=== PATIENT | female | born 1940 | race Caucasian/White ===

== ENCOUNTER 2019-03-05 11:27 | Inpatient (IN) | payer MEDICARE ==
[2019-03-05] MEDS ORDERED: methylPREDNISolone SOD SUCCI 125 MG/2 ML VIAL IV STA (12:44)
[2019-03-05] MEDS ORDERED: IPRATROPIUM-ALBUTEROL 3 ML NEB INHALATION STA (12:44)
--- NOTE | 2019-03-05 12:48 | ED ---
General Adult HPI - General Chief complaint: Shortness of Breath Stated complaint: SOB/COPD Time Seen by Provider: 03/05/19 12:05 Source: patient, RN notes reviewed Mode of arrival: ambulatory Limitations: no limitations - History of Present Illness Initial comments: Patient is a pleasant 78-year-old female presenting to the emergency department with shortness of breath. Onset of symptoms was around a week ago. She did see her doctor and started on steroids without much improvement of symptoms. Patient is having breathing spasms almost daily. Patient states her breathing treatments are not helping her much. Occasional cough. No fevers. No chest pain. Patient is feeling somewhat fatigued. - Related Data Home Medications Medication Instructions Recorded Confirmed ALPRAZolam [Xanax] 0.125 - 0.25 mg PO BID PRN 03/05/19 03/05/19 Aspirin 81 mg PO HS 03/05/19 03/05/19 Atorvastatin Calcium [Lipitor] 10 mg PO Q48H 03/05/19 03/05/19 Budesonide [Pulmicort] 0.5 mg INHALATION RT-BID 03/05/19 03/05/19 Ipratropium-Albuterol Nebulize 3 ml INHALATION RT-QID 03/05/19 03/05/19 [Duoneb 0.5 mg-3 mg/3 ml Soln] amLODIPine [Norvasc] 2.5 mg PO HS 03/05/19 03/05/19 Allergies Allergy/AdvReac Type Severity Reaction Status Date / Time No Known Allergies Allergy Verified 03/05/19 12:51 Review of Systems ROS Statement: Those systems with pertinent positive or pertinent negative responses have been documented in the HPI. ROS Other: All systems not noted in ROS Statement are negative. Constitutional: Denies: fever Eyes: Denies: eye pain ENT: Denies: ear pain Respiratory: Reports: cough, dyspnea Cardiovascular: Denies: chest pain Endocrine: Reports: fatigue Gastrointestinal: Denies: abdominal pain Genitourinary: Denies: dysuria Musculoskeletal: Denies: back pain Skin: Denies: rash Neurological: Denies: weakness Past Medical History Past Medical History: Asthma, COPD, Myocardial Infarction ([place]) History of Any Multi-Drug Resistant Organisms: None Reported Past Surgical History: Heart Catheterization With Stent, Tonsillectomy Past Psychological History: No Psychological Hx Reported Smoking Status: Current every day smoker Past Alcohol Use History: None Reported Past Drug Use History: None Reported General Exam Limitations: no limitations General appearance: alert, in no apparent distress Head exam: Present: normocephalic Eye exam: Present: normal appearance, PERRL ENT exam: Present: normal oropharynx Neck exam: Present: normal inspection Respiratory exam: Present: wheezes, decreased breath sounds Cardiovascular Exam: Present: regular rate, normal rhythm GI/Abdominal exam: Present: soft. Absent: tenderness Extremities exam: Present: normal inspection. Absent: pedal edema, calf tenderness Neurological exam: Present: alert Psychiatric exam: Present: normal affect, normal mood Skin exam: Present: normal color Course Vital Signs 03/05/19 03/05/19 03/05/19 11:36 11:39 13:15 Temperature 98.2 F Pulse Rate 57 L 106 H Respiratory 18 Rate Blood Pressure 131/81 O2 Sat by Pulse 87 L 95 Oximetry 03/05/19 13:22 Temperature Pulse Rate 102 H Respiratory Rate Blood Pressure O2 Sat by Pulse Oximetry EKG Findings - EKG Comments: EKG Findings:: Sinus tachycardia 109. TN 122. QRS 82. QT 336. QTc 452. Left axis. Left anterior fascicular block. Septal Q waves. No acute ST change. Medical Decision Making - Medical Decision Making Patient reevaluated and unchanged. Patient and family updated on results and plan. Case was discussed in detail with Dr. Chairez, who will admit For Dr. Hernandez. Patient is scheduled to see Dr. Mercado - Lab Data Result diagrams: 03/05/19 12:22 03/05/19 12:22 Lab Results 03/05/19 03/05/19 03/05/19 Range/Units 12:22 12:22 12:22 WBC 8.7 (3.8-10.6) k/uL RBC 5.34 (3.80-5.40) m/uL Hgb 17.1 H (11.4-16.0) gm/dL Hct 53.0 H (34.0-46.0) % MCV 99.2 (80.0-100.0) fL MCH 31.9 (25.0-35.0) pg MCHC 32.2 (31.0-37.0) g/dL RDW 12.3 (11.5-15.5) % Plt Count 239 (150-450) k/uL Neutrophils % 90 % Lymphocytes % 6 % Monocytes % 4 % Eosinophils % 0 % Basophils % 0 % Neutrophils # 7.8 H (1.3-7.7) k/uL Lymphocytes # 0.5 L (1.0-4.8) k/uL Monocytes # 0.3 (0-1.0) k/uL Eosinophils # 0.0 (0-0.7) k/uL Basophils # 0.0 (0-0.2) k/uL PT (9.0-12.0) sec INR (<1.2) APTT (22.0-30.0) sec Sodium 140 (137-145) mmol/L Potassium 4.5 (3.5-5.1) mmol/L Chloride 102 (98-107) mmol/L Carbon Dioxide 32 H (22-30) mmol/L Anion Gap 6 mmol/L BUN 16 (7-17) mg/dL Creatinine 0.51 L (0.52-1.04) mg/dL Est GFR (CKD-EPI)AfAm >90 (>60 ml/min/1.73 sqM) Est GFR (CKD-EPI)NonAf >90 (>60 ml/min/1.73 sqM) Glucose 115 H (74-99) mg/dL Calcium 10.0 (8.4-10.2) mg/dL Total Bilirubin 0.8 (0.2-1.3) mg/dL AST 57 H (14-36) U/L ALT 95 H (4-34) U/L Alkaline Phosphatase 80 (38-126) U/L NT-Pro-B Natriuret Pep 2000 pg/mL Total Protein 7.0 (6.3-8.2) g/dL Albumin 4.2 (3.5-5.0) g/dL Influenza Type A RNA (Not Detectd) Influenza Type B (PCR) (Not Detectd) 03/05/19 03/05/19 Range/Units 12:22 14:00 WBC (3.8-10.6) k/uL RBC (3.80-5.40) m/uL Hgb (11.4-16.0) gm/dL Hct (34.0-46.0) % MCV (80.0-100.0) fL MCH (25.0-35.0) pg MCHC (31.0-37.0) g/dL RDW (11.5-15.5) % Plt Count (150-450) k/uL Neutrophils % % Lymphocytes % % Monocytes % % Eosinophils % % Basophils % % Neutrophils # (1.3-7.7) k/uL Lymphocytes # (1.0-4.8) k/uL Monocytes # (0-1.0) k/uL Eosinophils # (0-0.7) k/uL Basophils # (0-0.2) k/uL PT 9.9 (9.0-12.0) sec INR 0.9 (<1.2) APTT 23.9 (22.0-30.0) sec Sodium (137-145) mmol/L Potassium (3.5-5.1) mmol/L Chloride (98-107) mmol/L Carbon Dioxide (22-30) mmol/L Anion Gap mmol/L BUN (7-17) mg/dL Creatinine (0.52-1.04) mg/dL Est GFR (CKD-EPI)AfAm (>60 ml/min/1.73 sqM) Est GFR (CKD-EPI)NonAf (>60 ml/min/1.73 sqM) Glucose (74-99) mg/dL Calcium (8.4-10.2) mg/dL Total Bilirubin (0.2-1.3) mg/dL AST (14-36) U/L ALT (4-34) U/L Alkaline Phosphatase (38-126) U/L NT-Pro-B Natriuret Pep pg/mL Total Protein (6.3-8.2) g/dL Albumin (3.5-5.0) g/dL Influenza Type A RNA Not Detected (Not Detectd) Influenza Type B (PCR) Not Detected (Not Detectd) - Radiology Data Radiology results: image reviewed (Chest x-ray shows nonspecific findings, possible bronchitis) Disposition Clinical Impression: Acute exacerbation of chronic obstructive pulmonary disease Disposition: ADMITTED IP TO THIS HOSP Is patient prescribed a controlled substance at d/c from ED?: No Referrals: Zion Hernandez MD [Primary Care Provider] - 1-2 days Decision Time: 15:44
[2019-03-05 13:12] LABS: Basophils % (A) 0 %; Eosinophils % (A) 0 %; HGB 17.1 gm/dL (11.4-16.0); Lymphocytes # (A) 0.5 k/uL (1.0-4.8); Lymphocytes % (A) 6 %; MCH 31.9 pg (25.0-35.0); MCHC 32.2 g/dL (31.0-37.0); MCV 99.2 fL (80.0-100.0); Mean Platelet Volume 7.4; Monocytes # (A) 0.3 k/uL (0-1.0); Monocytes % (A) 4 %; Neutrophils # (A) 7.8 k/uL (1.3-7.7); Neutrophils % (A) 90 %; Platelet Count 239 k/uL (150-450); RBC 5.34 m/uL (3.80-5.40); RDW 12.3 % (11.5-15.5); WBC 8.7 k/uL (3.8-10.6)
[2019-03-05 13:22] LABS: ALT 95 U/L (4-34); AST 57 U/L (14-36); African American GFR (CKD) >90 (>60 ml/min/1.73 sqM); Albumin 4.2 g/dL (3.5-5.0); Alkaline Phosphatase 80 U/L (38-126); Anion Gap 6 mmol/L; Blood Urea Nitrogen 16 mg/dL (7-17); Carbon Dioxide 32 mmol/L (22-30); Chloride 102 mmol/L (98-107); Glucose 115 mg/dL (74-99); Non-African American GFR(CKD) >90 (>60 ml/min/1.73 sqM); Potassium 4.5 mmol/L (3.5-5.1); Sodium 140 mmol/L (137-145); Total Bilirubin 0.8 mg/dL (0.2-1.3)
[2019-03-05 13:25] LABS: INR 0.9 (<1.2); Partial Thromboplastin Time 23.9 sec (22.0-30.0); Prothrombin Time 9.9 sec (9.0-12.0)
--- NOTE | 2019-03-05 13:33 | XR ---
EXAMINATION TYPE: XR chest 2V DATE OF EXAM: 03/05/2019 COMPARISON: NONE TECHNIQUE: PA and lateral views submitted. HISTORY: Difficulty breathing FINDINGS: The lungs are clear and there is no pneumothorax, pleural effusion, or focal pneumonia. Hyperinflat ion lungs. There is cardiomegaly and hypertrophic change of the spine. No overt failure. Diffuse oste openia. Interstitial prominence noted. IMPRESSION: 1. No acute process. COPD. Correlate for interstitial pneumonitis or bronchitis. Venous congestion fe lt less likely.
[2019-03-05] MEDS: IPRATROPIUM-ALBUTEROL 3 ML NEB INHALATION SCH ×3 (16:40→20:57)
[2019-03-05] MEDS: AZITHROMYCIN 500 MG TAB PO SCH (17:59)
[2019-03-05] MEDS: methylPREDNISolone SOD SUCCI 125 MG/2 ML VIAL IV SCH ×2 (17:59→23:43)
[2019-03-05] MEDS: ALPRAZolam 0.25 MG TAB PO PRN (19:53)
[2019-03-05] MEDS: BUDESONIDE 1 MG/2 ML NEBU INHALATION SCH (20:57)
[2019-03-05] MEDS: ASPIRIN 81 MG PO SCH (22:00)
[2019-03-05] MEDS: ATORVASTATIN 10 MG TAB PO SCH (22:00)
[2019-03-05] MEDS: amLODIPine 2.5 MG TAB PO SCH (22:00)
[2019-03-05] MEDS: ENOXAPARIN 40 MG/0.4 ML SYRINGE SQ SCH (22:00)
[2019-03-06] MEDS: IPRATROPIUM-ALBUTEROL 3 ML NEB INHALATION PRN (02:06)
[2019-03-06] MEDS: methylPREDNISolone SOD SUCCI 125 MG/2 ML VIAL IV SCH ×3 (06:11→17:19)
[2019-03-06] MEDS: AZITHROMYCIN 500 MG TAB PO SCH (08:18)
[2019-03-06] MEDS: PANTOPRAZOLE 40 MG TABLET PO SCH (08:18)
[2019-03-06] MEDS: ENOXAPARIN 40 MG/0.4 ML SYRINGE SQ SCH (08:18)
[2019-03-06] MEDS: BUDESONIDE 1 MG/2 ML NEBU INHALATION SCH ×2 (08:44→21:16)
[2019-03-06] MEDS: IPRATROPIUM-ALBUTEROL 3 ML NEB INHALATION SCH ×3 (11:35→21:16)
[2019-03-06 11:37] LABS: Glucose,Whole Blood 162 mg/dL (75-99)
[2019-03-06] MEDS: INSULIN ASPART (NovoLOG) 100 UNIT/ML VIAL SQ SCH ×3 (11:53→21:53)
--- NOTE | 2019-03-06 15:15 | PN ---
PROGRESS NOTE PULMONARY/CRITICAL CARE CONSULTATION: DATE OF SERVICE: 03/06/2019 REASON FOR CONSULTATION: Shortness of breath. This is a pleasant 78-year-old female who sees Dr. Hernandez. In the past, she apparently had seen Dr. Hadley for her lungs. She is not sure exactly what the diagnosis was and she apparently was not very pleased with Dr. Hadley's assessment. Nonetheless, she comes into the ER on March 05 complaining of profound and worsening shortness of breath. Symptoms have been present for about a week prior to admission getting progressively worse. She did see her doctor and was given steroids and apparently some antibiotics but unfortunately did not improve. She states that she is profoundly short of breath. She has severe conversational dyspnea. She has chest tightness, wheezing and cough. She is producing a small amount of phlegm. The patient apparently has quite severe COPD but again we have never seen her in our office or seen here in the hospital. The patient is 78 years of age. She continues to smoke cigarettes. She has been smoking since the age of 18. Her daughter is here at the bedside. She denies any chest pain or pressure. She denies any nausea, vomiting, diarrhea. She denies any genitourinary complaints. HOME MEDICATIONS: Reviewed. She is on Xanax, aspirin, Lipitor, Pulmicort, updrafts with DuoNeb, amlodipine, and amlodipine. ALLERGIES: Denied. MEDICAL HISTORY: COPD, myocardial infarction, anxiety and hyperlipidemia as well as hypertension. SURGICAL HISTORY: Includes heart catheterization with stent, and tonsillectomy. SOCIAL HISTORY: Ongoing tobacco use. She states she has smoked about 8-10 cigarettes a day which is quite a significant decrease. She denies any alcohol or illicit drug use. FAMILY HISTORY: Noncontributory. Apparently, her parents were healthy. REVIEW OF SYSTEMS: CONSTITUTIONAL: Negative. NEUROLOGIC: Negative. HEENT: Negative. CARDIOVASCULAR: Negative. PULMONARY: Shortness of breath, chest tightness, wheezing, cough, chest congestion and some phlegm production. GI: Negative. : Negative. RHEUMATOLOGIC: Negative. IMMUNOLOGIC: Negative. ENDOCRINOLOGIC: Negative. DERMATOLOGIC: Negative. PHYSICAL EXAMINATION: Current vital signs are reviewed. They include a temperature of 97, heart rate 98, respiratory rate 18, blood pressure 112/67, mean 82, 3 L saturation 94%. Appears in no acute distress. HEENT examination is grossly unremarkable. Nasal O2 in place. NECK: Supple full range of motion. No adenopathy or thyromegaly. Neck veins are flat. CARDIOVASCULAR: Examination reveals mild tachycardia. Heart rate about 100. She is in sinus tach. S1, S2 normal. Heart sounds are distant. No distinct murmur noted. LUNGS: Reveal severely diminished breath sounds throughout. There is prolongation on forced maneuver. She wheezes on forced maneuver. No rhonchi or crackles. ABDOMEN: Soft. Bowel sounds are heard. EXTREMITIES: Reveal no evidence of any cyanosis, clubbing, or edema. SKIN: Reveals chronic venous stasis changes particularly in the lower legs. NEUROLOGIC: Examination is brief but nonfocal. LAB DATA: Reviewed. White count 8.7, hemoglobin 17.1, hematocrit 53.0, platelet count 239,000. PT/INR and PTT all normal. Sodium and potassium normal. Chloride 102, CO2 32, anion gap is 6. BUN and creatinine were 16 and 0.51. The rest of the labs look okay. AST and ALT are modestly elevated. N terminal proBNP is 2000. Influenza studies are negative. A chest x-ray is consistent with underlying COPD. No acute abnormality is noted. Medications are reviewed. Adjustments are made accordingly. ASSESSMENT: 1. Chronic obstructive pulmonary disease exacerbation complicated by mild purulent tracheobronchitis. 2. Ongoing tobacco use with nicotine addiction. 3. Suspect stage III or stage IV emphysema. 4. History of anxiety. 5. History of hyperlipidemia. 6. History of hypertension. 7. Prior history of myocardial infarction. PLAN: The patient does have an appointment to see my partner on March 25 in the office. At that point, she likely will have a 6 minute walk distance and complete pulmonary function test. I suspect the patient has either stage III or stage IV COPD based on her numbers when obtained. The patient is quite symptomatic. She continues to smoke. Was counseled about the importance of smoking cessation. Medications are adjusted accordingly. No additional recommendations are made. MMODL / IJN: [id number] /
--- NOTE | 2019-03-06 15:25 | P.HPIM ---
History of Present Illness H&P Date: 03/06/19 Chief Complaint: Difficulty breathing This is a 78-year-old female patient of Dr. Hernandez with past medical history of hypertension, coronary artery disease with previous NE and stent, COPD, hyperlipidemia, generalized anxiety disorder, active tobacco use and dependence. Patient gives history that she was in the office due to cough and congestion all lung with some shortness of breath and had a steroid shot given as well as given prescription for prednisone which she has been on since February 20. She denies prescription for antibiotics. She has been using her nebulizer every 6 hours at home. She continued to get worse with increasing shortness of breath and cough and shallow respirations. She states during the night she was having shallow respirations and left shoulder blade pain. Her daughter was able to sit up or appointment with Dr. López for March 25 but patient states she had another episode on Friday morning and had significant dyspnea during the night had to sit up was unable to talk. She denies having worsening with ambulation. Patient came into [facility] emergency center found to be afebrile, heart rate 57, blood pressure 131/81, pulse ox 87% on room air. Patient does have home O2 at 3 L nasal cannula that s he uses as needed. WBC was 8.7, hemoglobin 17.1, CO2 32, creatinine 0.51, blood sugar 115. ProBNP 2000, AST 57, ALT 95, influenza testing negative. EKG was a sinus tachycardia without acute ST changes. Chest x-ray showed no acute process. COPD. Correlate for interstitial pneumonitis or bronchitis. Venous congestion felt less likely. Review of Systems Constitutional: Reports fatigue, Reports malaise, Denies chills, Denies fever Eyes: denies blurred vision, denies pain Ears, nose, mouth and throat: Denies headache, Denies nasal congestion, Denies nasal discharge, Denies sore throat, Denies vertigo Cardiovascular: Reports chest pain, Reports decreased exercise tolerance, R eports dyspnea on exertion, Denies edema, Denies leg edema, Denies shortness of breath, Denies syncope Respiratory: Reports cough, Reports cough with sputum, Reports dyspnea, Reports home oxygen, Reports respiratory infections, Reports wheezing, Denies excessive sputum, Denies hemoptysis Gastrointestinal: Denies abdominal pain, Denies diarrhea, Denies nausea, Denies vomiting Genitourinary: Denies dysuria, Denies hematuria, Denies urgency, Denies urinary frequency Musculoskeletal: Denies frequent falls, Denies gait dysfunction, Denies muscle weakness, Denies myalgias Integumentary: Denies pruritus, Denies rash, Denies wounds Neurological: Denies change in mentation, Denies change in speech, Denies numbness, Denies weakness Psychiatric: Denies anxiety, Denies depression Endocrine: Denies fatigue, Denies weight change Past Medical History Past Medical History: Asthma, COPD, Myocardial Infarction ([place]) Last Myocardial Infarction Date:: 08/02/2003 History of Any Multi-Drug Resistant Organisms: None Reported Past Surgical History: Heart Catheterization With Stent, Tonsillectomy Date of Last Stent Placement:: 08/02/2003 Past Psychological History: No Psychological Hx Reported Smoking Status: Current every day smoker Past Alcohol Use History: None Reported Additional Past Alcohol Use History / Comment(s): Patient has been a smoker for 61 years. She was at one time up to 1-1-1/2 packs per day currently cut down to 10 cigarettes per day. She also worked in the automotive industry. She has a nebulizer machine and home O2 at 3 L which she uses as needed. Past Drug Use History: None Reported - Past Family History Father Additional Family Medical History / Comment(s): Father at age 34 from heart failure. Mother Additional Family Medical History / Comment(s): Mother at age 68 from lung cancer. Brother(s) Additional Family Medical History / Comment(s): Patient has 3 brothers all , one from a motor vehicle accident at age 28, one had history of CVA and kidney cancer and brain cancer status post surgery. One brother from possible prostate cancer at the age of 82. Sister(s) Additional Family Medical History / Comment(s): Patient has 2 sisters one had breast cancer with metastatic disease and one had bleeding from her lungs. Son(s) History Unknown: Yes Additional Family Medical History / Comment(s): Patient has one son that was involved in a motor cross accident at age 18 with spinal cord injury now 52 years of age with lower extremity paralysis and amputation. Patient has one daughter with autoimmune disease and arthritis. Medications and Allergies Home Medications Medication Instructions Recorded Confirmed Type ALPRAZolam [Xanax] 0.125 - 0.25 mg PO BID PRN 03/05/19 03/05/19 History Aspirin 81 mg PO HS 03/05/19 03/05/19 History Atorvastatin Calcium [Lipitor] 10 mg PO Q48H 03/05/19 03/05/19 History Budesonide [Pulmicort] 0.5 mg INHALATION RT-BID 03/05/19 03/05/19 History Ipratropium-Albuterol Nebulize 3 ml INHALATION RT-QID 03/05/19 03/05/19 History [Duoneb 0.5 mg-3 mg/3 ml Soln] amLODIPine [Norvasc] 2.5 mg PO HS 03/05/19 03/05/19 History Allergies Allergy/AdvReac Type Severity Reaction Status Date / Time No Known Allergies Allergy Verified 03/05/19 12:51 Physical Exam Vitals: Vital Signs Temp Pulse Pulse Resp BP BP Pulse Ox 03/06/19 09:09 104 H 03/06/19 08:46 100 03/06/19 06:08 97.4 F L 99 18 102/64 96 03/06/19 02:18 97 03/06/19 02:06 97 03/05/19 21:23 97.3 F L 103 H 18 111/65 92 L 03/05/19 21:17 106 H 03/05/19 20:59 102 H 97 03/05/19 18:21 17 03/05/19 17:07 98.0 F 104 H 20 130/79 91 L 03/05/19 16:49 105 H 18 03/05/19 16:41 105 H 18 03/05/19 16:00 105 H 26 H 134/92 92 L 03/05/19 15:00 107 H 26 H 92 L 03/05/19 14:00 104 H 25 H 129/80 92 L 03/05/19 13:22 102 H 03/05/19 13:15 106 H 03/05/19 13:00 108 H 26 H 122/81 93 L 03/05/19 11:39 95 03/05/19 11:36 98.2 F 57 L 18 131/81 87 L Intake and Output 03/05/19 03/06/19 03/06/19 22:59 06:59 14:59 Intake Total 300 Balance 300 Intake: Oral 300 Other: Voiding Method Toilet Toilet # Voids 2 1 Weight 50.802 kg Gen: This is a thin 78-year-old female. Patient appears to be in no acute distress. Patient becomes dyspneic speaking in full sentences. HEENT: Head is atraumatic, normocephalic. Pupils equal, round. Sclerae is anicteric. Oral mucous membranes slightly dry. No thrush noted. NECK: Supple. No JVD. No lymphadenopathy. No thyromegaly. LUNGS: Lung sounds are diminished with expiratory wheeze. No intercostal retractions. HEART: Distant heart sounds. Regular rate and rhythm. No murmur. ABDOMEN: Soft. Bowel sounds are present. No masses. Mild generalized tenderness. EXTREMITIES: No pedal edema. No calf tenderness. Dorsalis pedis +2 bilaterally. NEUROLOGICAL: Patient is awake, alert and oriented x3. Cranial nerves 2 through 12 are grossly intact. Results CBC & Chem 7: 03/05/19 12:22 03/05/19 12:22 Labs: Abnormal Lab Results - Last 24 Hours (Table) 03/05/19 03/05/19 Range/Units 12:22 12:22 Hgb 17.1 H (11.4-16.0) gm/dL Hct 53.0 H (34.0-46.0) % Neutrophils # 7.8 H (1.3-7.7) k/uL Lymphocytes # 0.5 L (1.0-4.8) k/uL Carbon Dioxide 32 H (22-30) mmol/L Creatinine 0.51 L (0.52-1.04) mg/dL Glucose 115 H (74-99) mg/dL AST 57 H (14-36) U/L ALT 95 H (4-34) U/L Thrombosis Risk Factor Assmnt - DVT/VTE Prophylaxis DVT/VTE Prophylaxis: Pharmacologic Prophylaxis ordered Assessment and Plan Plan: 1. Acute COPD exacerbation. Continue DuoNeb treatments 4 times daily and every 4 hours as needed, Perforomist twice daily, Pulmicort 1 mg twice daily, Solu- Medrol 60 mg IV every 6 hours, Zithromax 500 mg daily oral consult with Dr. De La O. 2. Hypertension. Continue Norvasc 2.5 mg daily. 3. History of coronary artery disease status post NE and stent, continue aspirin 81 mg. 4. Generalized anxiety disorder. Continue Xanax as needed. 5. GI prophylaxis. Protonix. 6. DVT prophylaxis. Lovenox. 7. Tobacco use and dependence. Nicotine patch. Patient will be admitted to the hospital for a minimum of 2 night stay. Discharge plan: home Impression and plan of care have been directed as dictated by the signing physician. Mahogany Smith nurse practitioner acting as scribe for signing physi alvaro.
[2019-03-06 16:33] LABS: Glucose,Whole Blood 147 mg/dL (75-99)
[2019-03-06] MEDS: NICOTINE 7MG/24HR PATCH TRANSDERM SCH (18:07)
[2019-03-06] MEDS: FORMOTEROL FUMARATE 20 MCG/2 ML NEBU INHALATION SCH (21:16)
[2019-03-06 21:40] LABS: Glucose,Whole Blood 145 mg/dL (75-99)
[2019-03-06] MEDS: ASPIRIN 81 MG PO SCH (21:51)
[2019-03-06] MEDS: amLODIPine 2.5 MG TAB PO SCH (21:51)
[2019-03-06] MEDS: ALPRAZolam 0.25 MG TAB PO PRN (21:54)
[2019-03-07] MEDS: methylPREDNISolone SOD SUCCI 125 MG/2 ML VIAL IV SCH ×2 (00:30→06:22)
[2019-03-07] MEDS: IPRATROPIUM-ALBUTEROL 3 ML NEB INHALATION PRN ×2 (00:59→05:09)
[2019-03-07 06:53] LABS: Glucose,Whole Blood 128 mg/dL (75-99)
[2019-03-07] MEDS: INSULIN ASPART (NovoLOG) 100 UNIT/ML VIAL SQ SCH ×4 (07:06→21:41)
[2019-03-07] MEDS: AZITHROMYCIN 500 MG TAB PO SCH (08:49)
[2019-03-07] MEDS: PANTOPRAZOLE 40 MG TABLET PO SCH (08:49)
[2019-03-07] MEDS: ENOXAPARIN 40 MG/0.4 ML SYRINGE SQ SCH (08:50)
[2019-03-07] MEDS: NICOTINE 7MG/24HR PATCH TRANSDERM SCH (08:50)
[2019-03-07] MEDS: IPRATROPIUM-ALBUTEROL 3 ML NEB INHALATION SCH ×4 (09:19→18:55)
[2019-03-07] MEDS: BUDESONIDE 1 MG/2 ML NEBU INHALATION SCH ×2 (09:19→18:55)
[2019-03-07] MEDS: FORMOTEROL FUMARATE 20 MCG/2 ML NEBU INHALATION SCH ×2 (09:19→18:55)
[2019-03-07 11:23] LABS: Glucose,Whole Blood 137 mg/dL (75-99)
--- NOTE | 2019-03-07 13:20 | PN ---
PROGRESS NOTE This a 78-year-old heavy smoker. She was smoking up until the time of her admission to the hospital. She was admitted with a diagnosis of COPD exacerbation complicated by purulent tracheobronchitis. I suspect she has stage III or stage IV COPD. She also suffers from anxiety, hyperlipidemia, hypertension, and prior history of myocardial infarction. She is scheduled to see Dr. Mercado sometime later in March. She is feeling a bit better today. She is a pretty high strung patient. Very anxious. Her complaints include primarily shortness of breath, cough and occasional chest congestion. PHYSICAL EXAMINATION: Current vital signs are reviewed. Temperature is 97.8, heart rate 105, respiratory rate 19, blood pressure 102/67, mean 70, 3 L saturation 95%. She appears in no acute distress. She seems a bit anxious. HEENT examination is grossly unremarkable. Nasal O2 in place. NECK: Supple. Full range of motion. No adenopathy or thyromegaly. Neck veins are flat. CARDIOVASCULAR examination reveals tachycardia. Heart rate 100-105. S1, S2 normal. LUNGS: Reveal expiratory wheezes and rhonchi. Breath sounds are severely diminished throughout. There is prolongation on forced maneuver. ABDOMEN: Soft. Bowel sounds are heard. EXTREMITIES are intact. Chronic venous stasis changes noted in the lower legs. Minimal edema. SKIN: Without rash. NEUROLOGIC examination is nonfocal. LABS: Reviewed. Nothing new from today as yet. Influenza studies were negative. Microbiologic studies are negative. Chest x-ray failed to reveal any acute infiltrate. It was only positive for COPD. Medications were adjusted yesterday. She is on appropriate medications including Pulmicort and formoterol twice a day, Zithromax orally, DuoNeb q.i.d. and p.r.n., and Solu-Medrol 40 mg q.8h. ASSESSMENT: 1. Chronic obstructive pulmonary disease exacerbation complicated by purulent tracheobronchitis, slightly improved. 2. Ongoing tobacco use, with nicotine addiction. 3. Suspect stage III or stage IV emphysema. 4. History of anxiety. 5. History of hyperlipidemia. 6. History of hypertension. 7. Prior history of myocardial infarction. PLAN: The patient is on appropriate medications. We increased her Xanax to 0.25 mg twice a day scheduled. This should help some of her anxiety. No additional recommendations are made. She does have an appointment to see my partner in the office sometime in March. She needs to keep that appointment. She will need at the very least a 6 minute walk distance and complete pulmonary function test. MMXANDER / MARIBELLN: [id number] /
--- NOTE | 2019-03-07 15:34 | P.PN ---
Subjective Progress Note Date: 03/07/19 This is a 78-year-old female patient of Dr. Hernandez with past medical history of hypertension, coronary artery disease with previous MO and stent, COPD, hyperlipidemia, generalized anxiety disorder, active tobacco use and dependence. Patient gives history that she was in the office due to cough and congestion all lung with some shortness of breath and had a steroid shot given as well as given prescription for prednisone which she has been on since February 20. She denies prescription for antibiotics. She has been using her nebulizer every 6 hours at home. She continued to get worse with increasing shortness of breath and cough and shallow respirations. She states during the night she was having shallow respirations and left shoulder blade pain. Her daughter was able to sit up or appointment with Dr. López for March 25 but patient states she had another episode on Friday morning and had significant dyspnea during the night had to sit up was unable to talk. She denies having worsening with ambulation. Patient came into [facility] emergency center found to be afebrile, heart rate 57, blood pressure 131/81, pulse ox 87% on room air. Patient does have home O2 at 3 L nasal cannula that she uses as needed. WBC was 8.7, hemoglobin 17.1, CO2 32, creatinine 0.51, blood sugar 115. ProBNP 2000, AST 57, ALT 95, influenza testing negative. EKG was a sinus tachycardia without acute ST changes. Chest x-ray showed no acute process. COPD. Correlate for interstitial pneumonitis or bronchitis. Venous congestion felt less likely. 03/07: Patient states that her breathing is better. Patient is able to speak in full sentences. She is known to have some dyspnea with speaking. She is moving air better today. Patient has been afebrile, heart rate 98, blood pressure 120/56, pulse ox 97% on 3 L nasal cannula. We'll plan to decrease Solu-Medrol to 40 mg IV every 8 hours. Anticipate possible discharge by tomorrow. Patient is seen and followed by Dr. Muñiz and there is plan for her to follow-up with Dr. López at the scheduled appointment. Review of Systems Constitutional: Reports fatigue, Reports malaise, Denies chills, Denies fever Eyes: denies blurred vision, denies pain Ears, nose, mouth and throat: Denies headache, Denies nasal congestion, Denies nasal discharge, Denies sore throat, Denies vertigo Cardiovascular: Reports chest pain, Reports decreased exercise tolerance, Reports dyspnea on exertion, Denies edema, Denies leg edema, Denies shortness of breath, Denies syncope Respiratory: Reports cough, Reports cough with sputum, Reports dyspnea, Reports home oxygen, Reports respiratory infections, Reports wheezing, Denies excessive sputum, Denies hemoptysis Gastrointestinal: Denies abdominal pain, Denies diarrhea, Denies nausea, Denies vomiting Genitourinary: Denies dysuria, Denies hematuria, Denies urgency, Denies urinary frequency Musculoskeletal: Denies frequent falls, Denies gait dysfunction, Denies muscle weakness, Denies myalgias Integumentary: Denies pruritus, Denies rash, Denies wounds Neurological: Denies change in mentation, Denies change in speech, Denies numbness, Denies weakness Psychiatric: Denies anxiety, Denies depression Endocrine: Denies fatigue, Denies weight change Objective - Vital Signs Vital signs: Vital Signs Temp 97.8 F 03/07/19 05:25 Pulse 105 H 03/07/19 05:25 Resp 19 03/07/19 05:25 BP 102/67 03/07/19 05:25 Pulse Ox 95 03/07/19 05:25 Intake & Output 03/06/19 03/07/19 03/07/19 18:59 06:59 18:59 Intake Total 600 400 Balance 600 400 Intake: Oral 600 400 Other: Voiding Method Toilet # Voids 2 1 - Exam Gen: This is a thin 78-year-old female. Patient appears to be in no acute distress. Patient becomes dyspneic speaking in full sentences. HEENT: Head is atraumatic, normocephalic. Pupils equal, round. Sclerae is anicteric. Oral mucous membranes slightly dry. No thrush noted. NECK: Supple. No JVD. No lymphadenopathy. No thyromegaly. LUNGS: Lung sounds are diminished with scattered expiratory wheeze. No intercostal retractions. HEART: Distant heart sounds. Regular rate and rhythm. No murmur. ABDOMEN: Soft. Bowel sounds are present. No masses. Mild generalized tenderness. EXTREMITIES: No pedal edema. No calf tenderness. Dorsalis pedis +2 bilaterally. NEUROLOGICAL: Patient is awake, alert and oriented x3. Cranial nerves 2 through 12 are grossly intact. - Labs CBC & Chem 7: 03/05/19 12:22 03/05/19 12:22 Labs: Abnormal Lab Results - Last 24 Hours (Table) 03/06/19 03/06/19 03/06/19 Range/Units 11:34 16:29 21:30 POC Glucose (mg/dL) 162 H 147 H 145 H (75-99) mg/dL 03/07/19 Range/Units 06:49 POC Glucose (mg/dL) 128 H (75-99) mg/dL Assessment and Plan Plan: 1. Acute COPD exacerbation. Continue DuoNeb treatments 4 times daily and every 4 hours as needed, Perforomist twice daily, Pulmicort 1 mg twice daily, Solu- Medrol decreased to 40 mg every 8 hours, Zithromax 500 mg daily oral, consult with Dr. Jaylyn craven. 2. Hypertension. Continue Norvasc 2.5 mg daily. 3. History of coronary artery disease status post MO and stent, continue aspirin 81 mg. 4. Generalized anxiety disorder. Continue Xanax as needed. 5. GI prophylaxis. Protonix. 6. DVT prophylaxis. Lovenox. 7. Tobacco use and dependence. Nicotine patch. Discharge plan: home on Friday Impression and plan of care have been directed as dictated by the signing physician. Mahogany Smith nurse practitioner acting as scribe for signing physician.
[2019-03-07] MEDS: methylPREDNISolone SOD SUCCI 40 MG/ML 1 ML VIAL IV SCH ×2 (16:30→23:56)
[2019-03-07 16:35] LABS: Glucose,Whole Blood 162 mg/dL (75-99)
[2019-03-07 20:49] LABS: Glucose,Whole Blood 117 mg/dL (75-99)
[2019-03-07] MEDS: ASPIRIN 81 MG PO SCH (21:40)
[2019-03-07] MEDS: ATORVASTATIN 10 MG TAB PO SCH (21:40)
[2019-03-07] MEDS: amLODIPine 2.5 MG TAB PO SCH (21:40)
[2019-03-07] MEDS: ALPRAZolam 0.25 MG TAB PO SCH (21:40)
[2019-03-08] MEDS: IPRATROPIUM-ALBUTEROL 3 ML NEB INHALATION PRN (02:09)
[2019-03-08 07:07] LABS: Glucose,Whole Blood 125 mg/dL (75-99)
[2019-03-08] MEDS: FORMOTEROL FUMARATE 20 MCG/2 ML NEBU INHALATION SCH (07:48)
[2019-03-08] MEDS: IPRATROPIUM-ALBUTEROL 3 ML NEB INHALATION SCH ×3 (07:49→15:47)
[2019-03-08] MEDS: BUDESONIDE 1 MG/2 ML NEBU INHALATION SCH (07:49)
[2019-03-08] MEDS: INSULIN ASPART (NovoLOG) 100 UNIT/ML VIAL SQ SCH ×2 (08:16→12:36)
[2019-03-08] MEDS: ALPRAZolam 0.25 MG TAB PO SCH (10:02)
[2019-03-08] MEDS: AZITHROMYCIN 500 MG TAB PO SCH (10:03)
[2019-03-08] MEDS: ENOXAPARIN 40 MG/0.4 ML SYRINGE SQ SCH (10:03)
[2019-03-08] MEDS: PANTOPRAZOLE 40 MG TABLET PO SCH (10:03)
[2019-03-08] MEDS: methylPREDNISolone SOD SUCCI 40 MG/ML 1 ML VIAL IV SCH ×2 (10:03→15:08)
[2019-03-08] MEDS: NICOTINE 7MG/24HR PATCH TRANSDERM SCH (10:04)
[2019-03-08 11:15] VITALS: BMI 18.6
[2019-03-08] MEDS ORDERED: BISACODYL 5 MG TABLET.DR PO SCH (12:00)
[2019-03-08 12:31] LABS: Glucose,Whole Blood 104 mg/dL (75-99)
[2019-03-08 13:23] VITALS: BP 113/80; RESP 20; TEMP 96.8
--- NOTE | 2019-03-08 15:26 | P.DS ---
Providers Date of admission: 03/07/19 14:34 Expected date of discharge: 03/08/19 Attending physician: Paco Sanchez MD Consults: 03/05/19 15:45 Consult Physician Routine Consulting Provider: Davi Mercado Consult Reason/Comments: dyspnea Do you want consulting provider notified?: Yes Primary care physician: [place] Hospital Course: This is a 78-year-old female patient of Dr. Hernandez with past medical history of hypertension, coronary artery disease with previous MD and stent, COPD, hyperlipidemia, generalized anxiety disorder, active tobacco use and dependence. Patient gives history that she was in the office due to cough and congestion all lung with some shortness of breath and had a steroid shot given as well as given prescription for prednisone which she has been on since February 20. She denies prescription for antibiotics. She has been using her nebulizer every 6 hours at home. She continued to get worse with increasing shortness of breath and cough and shallow respirations. She states during the night she was having shallow respirations and left shoulder blade pain. Her daughter was able to sit up or appointment with Dr. López for March 25 but patient states she had another episode on Friday morning and had significant dyspnea during the night had to sit up was unable to talk. She denies having worsening with ambulation. Patient came into [facility] emergency center found to be afebrile, heart rate 57, blood pressure 131/81, pulse ox 87% on room air. Patient does have home O2 at 3 L nasal cannula that she uses as needed. WBC was 8.7, hemoglobin 17.1, CO2 32, creatinine 0.51, blood sugar 115. ProBNP 2000, AST 57, ALT 95, influenza testing negative. EKG was a sinus tachycardia without acute ST changes. Chest x-ray showed no acute process. COPD. Correlate for interstitial pneumonitis or bronchitis. Venous congestion felt less likely. 03/07: Patient states that her breathing is better. Patient is able to speak in full sentences. She is known to have some dyspnea with speaking. She is moving air better today. Patient has been afebrile, heart rate 98, blood pressure 120/56, pulse ox 97% on 3 L nasal cannula. We'll plan to decrease Solu-Medrol to 40 mg IV every 8 hours. Anticipate possible discharge by tomorrow. Patient is seen and followed by Dr. Muñiz and there is plan for her to follow-up with Dr. López at the scheduled appointment. 03/08: Patient's breathing status is stable today. She states she did not sleep during the night. She is complaining of some epigastric discomfort for which she will be started on Protonix. Patient has been recommended to continue oxygen around the clock until she is rechecked in the office. Patient will be discharged home today in stable condition. Discharge diagnoses: 1. Acute COPD exacerbation. 2. Hypertension. 3. History of coronary artery disease status post MD and stent. 4. Generalized anxiety disorder. 5. Tobacco use and dependence. Nicotine patch. 6. Chronic hypoxic respiratory failure on home O2. Discharge plan: home Impression and plan of care have been directed as dictated by the signing physician. Mahogany Smith nurse practitioner acting as scribe for signing physician. Patient Condition at Discharge: Good Plan - Discharge Summary Discharge Rx Participant: No New Discharge Prescriptions: New Nicotine 7Mg/24Hr Patch [Habitrol] 1 patch TRANSDERM DAILY #30 patch predniSONE 0 mg PO DIRECTED #30 tab Pantoprazole [Protonix] 40 mg PO AC-BRKFST #30 tablet. Azithromycin [Zithromax] 500 mg PO DAILY #5 tab Continue Aspirin 81 mg PO HS amLODIPine [Norvasc] 2.5 mg PO HS Budesonide [Pulmicort] 0.5 mg INHALATION RT-BID ALPRAZolam [Xanax] 0.125 - 0.25 mg PO BID PRN PRN Reason: Anxiety Ipratropium-Albuterol Nebulize [Duoneb 0.5 mg-3 mg/3 ml Soln] 3 ml INHALATION RT-QID Atorvastatin Calcium [Lipitor] 10 mg PO Q48H Discharge Medication List ALPRAZolam [Xanax] 0.125 - 0.25 mg PO BID PRN 03/05/19 [History] Aspirin 81 mg PO HS 03/05/19 [History] Atorvastatin Calcium [Lipitor] 10 mg PO Q48H 03/05/19 [History] Budesonide [Pulmicort] 0.5 mg INHALATION RT-BID 03/05/19 [History] Ipratropium-Albuterol Nebulize [Duoneb 0.5 mg-3 mg/3 ml Soln] 3 ml INHALATION RT-QID 03/05/19 [History] amLODIPine [Norvasc] 2.5 mg PO HS 03/05/19 [History] Azithromycin [Zithromax] 500 mg PO DAILY #5 tab 03/08/19 [Rx] Nicotine 7Mg/24Hr Patch [Habitrol] 1 patch TRANSDERM DAILY #30 patch 03/08/19 [Rx] Pantoprazole [Protonix] 40 mg PO AC-BRKFST #30 tablet. 03/08/19 [Rx] predniSONE 0 mg PO DIRECTED #30 tab 03/08/19 [Rx] Follow up Appointment(s)/Referral(s): Davi Mercado MD [STAFF PHYSICIAN] - 03/25/19 9:15 am () Zion Hernandez MD [Primary Care Provider] - 1 Week (office to call you with appt. time and date.) Patient Instructions/Handouts: COPD (Chronic Obstructive Pulmonary Disease) (DC) Activity/Diet/Wound Care/Special Instructions: Continue HOME O2--use around the clock until rechecked in the office. Discharge Disposition: HOME SELF-CARE
[2019-03-08 16:03] VITALS: PULSE 110
== END 2019-03-08 16:31 | disposition home or self-care (01) | DRG 191 ==
LOC: EC 11:27 → 6NMEDSUR 15:45 → OBSVTOIN 03-07 14:34
PROVIDERS: ADMIT Internal Medicine; ATTEND Internal Medicine
DX: J44.1 Chronic obstructive pulmonary disease with (acute) exacerbation (principal); J96.11 Chronic respiratory failure with hypoxia; F17.210 Nicotine dependence, cigarettes, uncomplicated; E78.5 Hyperlipidemia, unspecified; F41.1 Generalized anxiety disorder; I10 Essential (primary) hypertension; I44.4 Left anterior fascicular block; I25.10 Atherosclerotic heart disease of native coronary artery without angina pectoris; Z79.82 Long term (current) use of aspirin; I25.2 Old myocardial infarction; Z95.5 Presence of coronary angioplasty implant and graft; Z82.49 Family history of ischemic heart disease and other diseases of the circulatory system; Z80.8 Family history of malignant neoplasm of other organs or systems; Z80.3 Family history of malignant neoplasm of breast; Z80.1 Family history of malignant neoplasm of trachea, bronchus and lung; Z80.51 Family history of malignant neoplasm of kidney; Z90.89 Acquired absence of other organs; Z99.81 Dependence on supplemental oxygen
CPT/HCPCS: 36415; 71046; 80053; 83880; 85025; 85610; 85730; 87502; 93005; 94640; 94644; 94760; 96374; 99285

== ENCOUNTER 2019-08-24 04:59 | Inpatient (IN) | payer MEDICARE ==
[2019-08-24] MEDS ORDERED: IPRATROPIUM-ALBUTEROL 3 ML NEB INHALATION STA (05:05)
[2019-08-24 05:17] LABS: Basophils % (A) 0 %; Eosinophils # (A) 0.1 k/uL (0-0.7); Eosinophils % (A) 1 %; HCT 52.1 % (34.0-46.0); HGB 17.3 gm/dL (11.4-16.0); Lymphocytes # (A) 1.2 k/uL (1.0-4.8); Lymphocytes % (A) 11 %; MCH 32.6 pg (25.0-35.0); MCHC 33.2 g/dL (31.0-37.0); MCV 98.3 fL (80.0-100.0); Mean Platelet Volume 7.3; Monocytes # (A) 0.8 k/uL (0-1.0); Monocytes % (A) 8 %; Neutrophils # (A) 8.5 k/uL (1.3-7.7); Neutrophils % (A) 78 %; Platelet Count 240 k/uL (150-450); RDW 12.3 % (11.5-15.5); WBC 10.9 k/uL (3.8-10.6)
[2019-08-24] MEDS ORDERED: MORPHINE SULFATE 4 MG/ML SYRINGE IV STA (05:17)
[2019-08-24 05:18] LABS: VBG PH 7.36 (7.31-7.41)
[2019-08-24 05:35] LABS: INR 0.9 (<1.2); Partial Thromboplastin Time 22.3 sec (22.0-30.0); Prothrombin Time 9.8 sec (9.0-12.0)
--- NOTE | 2019-08-24 05:37 | XR ---
EXAMINATION TYPE: XR chest 1V portable DATE OF EXAM: 08/24/2019 COMPARISON: 03/25/2019 HISTORY: Short of breath TECHNIQUE: FINDINGS: Heart is enlarged. There is some pulmonary interstitial edema. There are no hilar masses. T horacic aorta is atheromatous. There are chest leads. IMPRESSION: Cardiomegaly. There is new pulmonary interstitial edema compared to old exam that could b e acute congestive heart failure. There is underlying COPD.
[2019-08-24 05:52] LABS: ALT 106 U/L (4-34); AST 114 U/L (14-36); African American GFR (CKD) >90 (>60 ml/min/1.73 sqM); Albumin 3.9 g/dL (3.5-5.0); Alkaline Phosphatase 108 U/L (38-126); Anion Gap 9 mmol/L; Blood Urea Nitrogen 30 mg/dL (7-17); Calcium 9.2 mg/dL (8.4-10.2); Carbon Dioxide 33 mmol/L (22-30); Chloride 96 mmol/L (98-107); Glucose 156 mg/dL (74-99); Non-African American GFR(CKD) 88 (>60 ml/min/1.73 sqM); Potassium 4.5 mmol/L (3.5-5.1); Sodium 138 mmol/L (137-145); Total Bilirubin 0.7 mg/dL (0.2-1.3); Total Protein 6.7 g/dL (6.3-8.2)
--- NOTE | 2019-08-24 05:53 | ED ---
SOB HPI - General Source: patient, EMS Mode of arrival: EMS Limitations: no limitations - History of Present Illness MD Complaint: shortness of breath, cough -: days(s) Consistency: constant Improves With: nothing Worsens With: nothing Known History Of: COPD Associated Symptoms: cough Treatments Prior to Arrival: oxygen, bronchodilator <Fabian Kurtz - Last Filed: 08/24/19 06:57> <Rony Bustamante - Last Filed: 08/24/19 08:56> - General Chief Complaint: Shortness of Breath Stated Complaint: Diff Breathing Time Seen by Provider: 08/24/19 05:01 - History of Present Illness Initial Comments: This patient is 79-year-old woman with history of end-stage COPD who presents to be evaluated for worsening from her baseline shortness of breath. The patient states she is also having a little bit of nonproductive cough. No chest pain. (Fabian Kurtz) - Related Data Home Medications Medication Instructions Recorded Confirmed ALPRAZolam [Xanax] 0.25 mg PO BID PRN 03/05/19 08/24/19 Aspirin 81 mg PO HS 03/05/19 08/24/19 Budesonide [Pulmicort] 0.5 mg INHALATION RT-BID 03/05/19 08/24/19 Ipratropium-Albuterol Nebulize 3 ml INHALATION RT-QID 03/05/19 08/24/19 [Duoneb 0.5 mg-3 mg/3 ml Soln] amLODIPine [Norvasc] 2.5 mg PO HS 03/05/19 08/24/19 Azithromycin [Zithromax] 250 mg PO DAILY 08/24/19 08/24/19 Baclofen 10 mg PO TID 08/24/19 08/24/19 Simvastatin [Zocor] 20 mg PO HS 08/24/19 08/24/19 Sucralfate [Carafate] 1 gm PO ACHS 08/24/19 08/24/19 Theophylline 24 Hour [Mookie-24] 300 mg PO DAILY 08/24/19 08/24/19 Triamterene/Hydrochlorothiazid 1 each PO DAILY 08/24/19 08/24/19 [Triamterene-Hctz 37.5-25 mg Tb] buPROPion XL [Wellbutrin Xl] 150 mg PO DAILY 08/24/19 08/24/19 predniSONE 10 mg PO DAILY 08/24/19 08/24/19 Previous Rx's Medication Instructions Recorded Pantoprazole [Protonix] 40 mg PO AC-BRKFST #30 tablet. 03/08/19 Allergies Allergy/AdvReac Type Severity Reaction Status Date / Time No Known Allergies Allergy Verified 08/24/19 08:47 Review of Systems ROS Other: All systems not noted in ROS Statement are negative. Constitutional: Denies: fever, chills Respiratory: Reports: cough, dyspnea, wheezes. Denies: hemoptysis Cardiovascular: Denies: chest pain, palpitations, orthopnea, edema, syncope Gastrointestinal: Denies: abdominal pain, vomiting, diarrhea Genitourinary: Denies: dysuria Musculoskeletal: Denies: back pain Skin: Denies: rash Neurological: Denies: headache <Fabian Kurtz - Last Filed: 08/24/19 06:57> ROS Other: All systems not noted in ROS Statement are negative. <Rony Bustamante - Last Filed: 08/24/19 08:56> ROS Statement: Those systems with pertinent positive or pertinent negative responses have been documented in the HPI. Past Medical History Past Medical History: Asthma, Heart Failure, COPD, Myocardial Infarction (PR) Last Myocardial Infarction Date:: 08/02/2003 History of Any Multi-Drug Resistant Organisms: None Reported Past Surgical History: Heart Catheterization With Stent, Tonsillectomy Date of Last Stent Placement:: 08/02/2003 Past Psychological History: No Psychological Hx Reported Smoking Status: Current every day smoker Past Alcohol Use History: None Reported Past Drug Use History: None Reported - Past Family History Father Additional Family Medical History / Comment(s): Father at age 34 from heart failure. Mother Additional Family Medical History / Comment(s): Mother at age 68 from lung cancer. Brother(s) Additional Family Medical History / Comment(s): Patient has 3 brothers all , one from a motor vehicle accident at age 28, one had history of CVA and kidney cancer and brain cancer status post surgery. One brother from possible prostate cancer at the age of 82. Sister(s) Additional Family Medical History / Comment(s): Patient has 2 sisters one had breast cancer with metastatic disease and one had bleeding from her lungs. Son(s) History Unknown: Yes Additional Family Medical History / Comment(s): Patient has one son that was involved in a motor cross accident at age 18 with spinal cord injury now 52 years of age with lower extremity paralysis and amputation. Patient has one daughter with autoimmune disease and arthritis. <Fabian Kurtz - Last Filed: 08/24/19 06:57> General Exam Limitations: no limitations General appearance: alert, in no apparent distress Head exam: Present: atraumatic, normocephalic Eye exam: Present: normal appearance ENT exam: Present: mucous membranes dry Neck exam: Present: normal inspection Respiratory exam: Present: respiratory distress, wheezes, accessory muscle use, prolonged expiratory. Absent: rales, rhonchi, stridor, decreased breath sounds Cardiovascular Exam: Present: normal rhythm, tachycardia, normal heart sounds. Absent: systolic murmur, diastolic murmur, rubs, gallop GI/Abdominal exam: Present: soft. Absent: distended, tenderness, guarding, rebound, mass Extremities exam: Present: normal inspection, normal capillary refill. Absent: pedal edema Back exam: Present: normal inspection Neurological exam: Present: alert Psychiatric exam: Present: anxious Skin exam: Present: warm, dry, intact <TessieFabian - Last Filed: 08/24/19 06:57> Course <Rony Bustamante - Last Filed: 08/24/19 08:56> Vital Signs 08/24/19 08/24/19 08/24/19 04:59 05:05 05:18 Temperature 98 F Pulse Rate 126 H 126 H 134 H Respiratory 24 Rate Blood Pressure 140/104 O2 Sat by Pulse 100 Oximetry 08/24/19 08/24/19 08/24/19 05:29 06:12 06:35 Temperature Pulse Rate 125 H 105 H 100 Respiratory 23 24 17 Rate Blood Pressure 144/74 127/87 103/68 O2 Sat by Pulse 93 L 94 L 96 Oximetry 08/24/19 08/24/19 08/24/19 07:33 08:04 08:18 Temperature Pulse Rate 106 H 113 H 114 H Respiratory 28 H 28 H Rate Blood Pressure 113/66 O2 Sat by Pulse 94 L Oximetry - Reevaluation(s) Reevaluation #1: 08/24/19 08:55 The patient was seen by Dr. López in the emergency department and patient will be admitted (Rony Bustamante) Medical Decision Making - Lab Data Result diagrams: 08/24/19 05:08 08/24/19 05:38 - EKG Data -: EKG Interpreted by Me EKG shows normal: sinus rhythm, intervals (Normal), QRS complexes (Left anterior fascicular block. Possible old anteroseptal infarct.) Rate: tachycardia (Rate 133 bpm) Interpretation: nonspecific ST-T wave changes <Fabian Kurtz - Last Filed: 08/24/19 06:57> - Lab Data Result diagrams: 08/24/19 05:08 08/24/19 05:38 <Rony Bustamante - Last Filed: 08/24/19 08:56> - Medical Decision Making Patient 79-year-old woman in with dyspnea. Patient did receive albuterol and Solu-Medrol and route. She has had further albuterol here. Chest x-ray does show component of CHF in addition to the COPD. Patient given nitrates and Lasix. Case discussed with patient and family and at this point the patient would prefer to go home rather than stay in the hospital. I did encourage her to reconsider, but she seems set on going home. I discussed case with patient's primary physician Dr. Hernandez, who is actually en route to the hospital and will see her here in the emergency department. (Fabian Kurtz) - Lab Data Lab Results 08/24/19 08/24/19 08/24/19 Range/Units 05:08 05:08 05:08 WBC 10.9 H (3.8-10.6) k/uL RBC 5.30 (3.80-5.40) m/uL Hgb 17.3 H (11.4-16.0) gm/dL Hct 52.1 H (34.0-46.0) % MCV 98.3 (80.0-100.0) fL MCH 32.6 (25.0-35.0) pg MCHC 33.2 (31.0-37.0) g/dL RDW 12.3 (11.5-15.5) % Plt Count 240 (150-450) k/uL Neutrophils % 78 % Lymphocytes % 11 % Monocytes % 8 % Eosinophils % 1 % Basophils % 0 % Neutrophils # 8.5 H (1.3-7.7) k/uL Lymphocytes # 1.2 (1.0-4.8) k/uL Monocytes # 0.8 (0-1.0) k/uL Eosinophils # 0.1 (0-0.7) k/uL Basophils # 0.0 (0-0.2) k/uL PT 9.8 (9.0-12.0) sec INR 0.9 (<1.2) APTT 22.3 (22.0-30.0) sec VBG pH (7.31-7.41) VBG pCO2 (37-51) mmHg VBG HCO3 (24-28) mmol/L Sodium (137-145) mmol/L Potassium (3.5-5.1) mmol/L Chloride (98-107) mmol/L Carbon Dioxide (22-30) mmol/L Anion Gap mmol/L BUN (7-17) mg/dL Creatinine (0.52-1.04) mg/dL Est GFR (CKD-EPI)AfAm (>60 ml/min/1.73 sqM) Est GFR (CKD-EPI)NonAf (>60 ml/min/1.73 sqM) Glucose (74-99) mg/dL Plasma Lactic Acid Good 1.5 (0.7-2.0) mmol/L Calcium (8.4-10.2) mg/dL Total Bilirubin (0.2-1.3) mg/dL AST (14-36) U/L ALT (4-34) U/L Alkaline Phosphatase (38-126) U/L Troponin I (0.000-0.034) ng/mL NT-Pro-B Natriuret Pep pg/mL Total Protein (6.3-8.2) g/dL Albumin (3.5-5.0) g/dL 08/24/19 08/24/19 08/24/19 Range/Units 05:08 05:11 05:38 WBC (3.8-10.6) k/uL RBC (3.80-5.40) m/uL Hgb (11.4-16.0) gm/dL Hct (34.0-46.0) % MCV (80.0-100.0) fL MCH (25.0-35.0) pg MCHC (31.0-37.0) g/dL RDW (11.5-15.5) % Plt Count (150-450) k/uL Neutrophils % % Lymphocytes % % Monocytes % % Eosinophils % % Basophils % % Neutrophils # (1.3-7.7) k/uL Lymphocytes # (1.0-4.8) k/uL Monocytes # (0-1.0) k/uL Eosinophils # (0-0.7) k/uL Basophils # (0-0.2) k/uL PT (9.0-12.0) sec INR (<1.2) APTT (22.0-30.0) sec VBG pH 7.36 (7.31-7.41) VBG pCO2 63 H (37-51) mmHg VBG HCO3 34 H (24-28) mmol/L Sodium 138 (137-145) mmol/L Potassium 4.5 (3.5-5.1) mmol/L Chloride 96 L (98-107) mmol/L Carbon Dioxide 33 H (22-30) mmol/L Anion Gap 9 mmol/L BUN 30 H (7-17) mg/dL Creatinine 0.60 (0.52-1.04) mg/dL Est GFR (CKD-EPI)AfAm >90 (>60 ml/min/1.73 sqM) Est GFR (CKD-EPI)NonAf 88 (>60 ml/min/1.73 sqM) Glucose 156 H (74-99) mg/dL Plasma Lactic Acid Good (0.7-2.0) mmol/L Calcium 9.2 (8.4-10.2) mg/dL Total Bilirubin 0.7 (0.2-1.3) mg/dL AST 114 H (14-36) U/L ALT 106 H (4-34) U/L Alkaline Phosphatase 108 (38-126) U/L Troponin I (0.000-0.034) ng/mL NT-Pro-B Natriuret Pep 3300 pg/mL Total Protein 6.7 (6.3-8.2) g/dL Albumin 3.9 (3.5-5.0) g/dL 08/24/19 Range/Units 05:38 WBC (3.8-10.6) k/uL RBC (3.80-5.40) m/uL Hgb (11.4-16.0) gm/dL Hct (34.0-46.0) % MCV (80.0-100.0) fL MCH (25.0-35.0) pg MCHC (31.0-37.0) g/dL RDW (11.5-15.5) % Plt Count (150-450) k/uL Neutrophils % % Lymphocytes % % Monocytes % % Eosinophils % % Basophils % % Neutrophils # (1.3-7.7) k/uL Lymphocytes # (1.0-4.8) k/uL Monocytes # (0-1.0) k/uL Eosinophils # (0-0.7) k/uL Basophils # (0-0.2) k/uL PT (9.0-12.0) sec INR (<1.2) APTT (22.0-30.0) sec VBG pH (7.31-7.41) VBG pCO2 (37-51) mmHg VBG HCO3 (24-28) mmol/L Sodium (137-145) mmol/L Potassium (3.5-5.1) mmol/L Chloride (98-107) mmol/L Carbon Dioxide (22-30) mmol/L Anion Gap mmol/L BUN (7-17) mg/dL Creatinine (0.52-1.04) mg/dL Est GFR (CKD-EPI)AfAm (>60 ml/min/1.73 sqM) Est GFR (CKD-EPI)NonAf (>60 ml/min/1.73 sqM) Glucose (74-99) mg/dL Plasma Lactic Acid Good (0.7-2.0) mmol/L Calcium (8.4-10.2) mg/dL Total Bilirubin (0.2-1.3) mg/dL AST (14-36) U/L ALT (4-34) U/L Alkaline Phosphatase (38-126) U/L Troponin I 0.103 H* (0.000-0.034) ng/mL NT-Pro-B Natriuret Pep pg/mL Total Protein (6.3-8.2) g/dL Albumin (3.5-5.0) g/dL Disposition <Fabian Kurtz - Last Filed: 08/24/19 06:57> <Rony Bustamante - Last Filed: 08/24/19 08:56> Clinical Impression: Congestive heart failure, Acute exacerbation of chronic obstructive pulmonary disease, Troponin I above reference range Disposition: ADMITTED IP TO THIS HOSP Condition: Fair Referrals: Zion Hernandez MD [Primary Care Provider] - 1-2 days
[2019-08-24] MEDS ORDERED: NITROGLYCERIN OINT 1 INCH/GM PACKET TOPICAL STA (06:04)
[2019-08-24] MEDS ORDERED: FUROSEMIDE 10 MG/ML 2 ML VIAL IV STA (06:56)
[2019-08-24] MEDS ORDERED: ONDANSETRON 4 MG/2 ML VIAL IVP PRN (07:43)
[2019-08-24] MEDS ORDERED: BUDESONIDE 0.5 MG/2 ML NEBU INHALATION SCH (08:00)
[2019-08-24] MEDS: IPRATROPIUM-ALBUTEROL 3 ML NEB INHALATION SCH ×4 (08:04→18:43)
[2019-08-24] MEDS ORDERED: THEOPHYLLINE 24 HOUR 300 MG CAP.ER.24H PO SCH (09:00)
[2019-08-24] MEDS ORDERED: FUROSEMIDE 10 MG/ML 4 ML VIAL IV SCH (09:00)
[2019-08-24] MEDS: BACLOFEN 10 MG TAB PO SCH ×3 (09:02→20:41)
[2019-08-24] MEDS: methylPREDNISolone SOD SUCCI 125 MG/2 ML VIAL IV SCH ×4 (09:02→23:17)
[2019-08-24] MEDS: TRIAMTERENE-HCTZ 37.5-25MG 1 EACH TAB PO SCH (09:25)
[2019-08-24] MEDS: buPROPion XL 150 MG TAB.ER.24H PO SCH (09:25)
[2019-08-24] MEDS: ALPRAZolam 0.25 MG TAB PO PRN ×2 (09:25→20:41)
[2019-08-24 09:29] LABS: Glucose,Whole Blood 167 mg/dL (75-99)
[2019-08-24] MEDS: FUROSEMIDE 10 MG/ML 2 ML VIAL IV SCH ×2 (11:36→19:55)
--- NOTE | 2019-08-24 11:46 | P.HPIM ---
History of Present Illness H&P Date: 08/24/19 Chief Complaint: Difficulty breathing This is a 79-year-old female patient of Dr. Hernandez and Dr. Mercado with past medical history of hypertension, coronary artery disease with previous ND and stent, end-stage COPD, prednisone dependent, hyperlipidemia, chronic hypoxic respiratory failure, generalized anxiety disorder, active tobacco use and dependence. The patient has had ongoing worsening of her difficulty breathing. She is stating that she is just tired. She knows that she is going to soon. She has been active tobacco use. Currently at one to 2 packs per day but has cut back due to difficulty breathing. She has been using her medications at home without improvement. Patient was afebrile, heart rate 126, blood pressure 140/104, pulse ox 100% on oxygen. EKG was a sinus tachycardia at 133. WBC 10.9, hemoglobin 17.3. CO2 33, creatinine 0.6, BUN 30, blood sugar 156. Lactic acid 1.5. Total bilirubin 0.7, AST 114, ALT 106, phosphatase 108. Troponin 0.103. Chest x-ray reveals cardiomegaly. There is new pulmonary interstitial edema compared to old exam that could be acute heart failure. Underlying COPD. Patient verbalizes that she is ready to give up. Daughter is at the bedside. At this time, we will continue aggressive treatment and patient is agreeable to wait until . Patient is appropriate for hospice care. Option of [facility] home offered. Patient prefers to be at home with hospice. Consults admitted for pulmonary medicine for COPD exacerbation and cardiology for elevated troponins.. Review of Systems Constitutional: Reports fatigue, Reports malaise, Denies chills, Denies fever Eyes: denies blurred vision, denies pain Ears, nose, mouth and throat: Denies headache, Denies nasal congestion, Denies nasal discharge, Denies sore throat, Denies vertigo Cardiovascular: Reports chest pain, Reports decreased exercise tolerance, Reports dyspnea on exertion, Denies edema, Denies leg edema, Denies shortness of breath, Denies syncope Respiratory: Reports cough, Reports cough with sputum, Reports dyspnea, Reports home oxygen, Reports respiratory infections, Reports wheezing, Denies excessive sputum, Denies hemoptysis Gastrointestinal: Denies abdominal pain, Denies diarrhea, Denies nausea, Denies vomiting Genitourinary: Denies dysuria, Denies hematuria, Denies urgency, Denies urinary frequency Musculoskeletal: Denies frequent falls, Denies gait dysfunction, Denies muscle weakness, Denies myalgias Integumentary: Denies pruritus, Denies rash, Denies wounds Neurological: Denies change in mentation, Denies change in speech, Denies num bness, Denies weakness Psychiatric: Denies anxiety, Denies depression Endocrine: Denies fatigue, Denies weight change Physical Examination Gen: This is a thin 79-year-old female. Patient restless, anxious and dyspneic. HEENT: Head is atraumatic, normocephalic. Pupils equal, round. Sclerae is anicteric. Oral mucous membranes dry. No thrush noted. NECK: Supple. No JVD. No lymphadenopathy. No thyromegaly. LUNGS: Lung sounds are diminished with expiratory wheeze. Moderate intercostal retractions. HEART: Distant heart sounds. Regular rate and rhythm. No murmur. ABDOMEN: Soft. Bowel sounds are present. No masses. Mild generalized tenderness. EXTREMITIES: No pedal edema. No calf tenderness. Dorsalis pedis +2 bilaterally. NEUROLOGICAL: Patient is awake, alert and oriented x3. Cranial nerves 2 through 12 are grossly intact. Assessment and Plan 1. Acute hypoxic respiratory failure secondary to combination of COPD exacerbation and acute diastolic heart failure. 2. COPD exacerbation. Continue DuoNeb treatments 4 times daily and every 4 hours as needed, Perforomist twice daily, Pulmicort 1 mg twice daily, Solu- Medrol 60 mg IV every 6 hours, theophylline 300 mg daily, consult with Dr. Negro. 3. Acute diastolic heart failure. Continue Lasix 40 mg daily, monitor I&O and daily weights. 4. Elevated troponins, possible non-ST elevated myocardial infarction, possibly related to sinus tachycardia. Consult with cardiology, repeat troponins. 5. Hypertension. Continue Norvasc 2.5 mg daily, Maxide daily. 6. History of coronary artery disease status post ND and stent, continue aspirin 81 mg. 7. Recurrent depression and Generalized anxiety disorder. Continue Wellbutrin 150 mg daily, Xanax as needed. 8. Gastroesophageal reflux disease and GI prophylaxis. Protonix and Carafate. 9. DVT prophylaxis. Lovenox. 10. Tobacco use and dependence. Nicotine patch. 11. COVID-19 testing in progress. Patient will be admitted to the hospital for a minimum of 2 night stay. Discharge plan: Most likely home with hospice on depending on progress. Impression and plan of care have been directed as dictated by the signing physician. Mahogany Smith nurse practitioner acting as scribe for signing physician. Past Medical History Past Medical History: Asthma, Heart Failure, COPD, Myocardial Infarction (ND) Last Myocardial Infarction Date:: 08/02/2003 History of Any Multi-Drug Resistant Organisms: None Reported Past Surgical History: Heart Catheterization With Stent, Tonsillectomy Date of Last Stent Placement:: 08/02/2003 Past Psychological History: No Psychological Hx Reported Smoking Status: Current every day smoker Past Alcohol Use History: None Reported Additional Past Alcohol Use History / Comment(s): Patient has been a smoker for 61 years. She was at one time up to 1-1-1/2 packs per day currently cut down to 10 cigarettes per day. She also worked in the automotive industry. She has a nebulizer machine and home O2 at 3 L Past Drug Use History: None Reported - Past Family History Father Additional Family Medical History / Comment(s): Father at age 34 from heart failure. Mother Additional Family Medical History / Comment(s): Mother at age 68 from lung cancer. Brother(s) Additional Family Medical History / Comment(s): Patient has 3 brothers all , one from a motor vehicle accident at age 28, one had history of CVA and kidney cancer and brain cancer status post surgery. One brother from possible prostate cancer at the age of 82. Sister(s) Additional Family Medical History / Comment(s): Patient has 2 sisters one had breast cancer with metastatic disease and one had bleeding from her lungs. Son(s) History Unknown: Yes Additional Family Medical History / Comment(s): Patient has one son that was involved in a motor cross accident at age 18 with spinal cord injury now 52 years of age with lower extremity paralysis and amputation. Patient has one daughter with autoimmune disease and arthritis. Medications and Allergies Home Medications Medication Instructions Recorded Confirmed Type ALPRAZolam [Xanax] 0.25 mg PO BID PRN 03/05/19 08/24/19 History Aspirin 81 mg PO HS 03/05/19 08/24/19 History Budesonide [Pulmicort] 0.5 mg INHALATION RT-BID 03/05/19 08/24/19 History Ipratropium-Albuterol Nebulize 3 ml INHALATION RT-QID 03/05/19 08/24/19 History [Duoneb 0.5 mg-3 mg/3 ml Soln] amLODIPine [Norvasc] 2.5 mg PO HS 03/05/19 08/24/19 History Azithromycin 250 mg PO MOWEFR 08/24/19 08/24/19 History Baclofen 10 mg PO TID 08/24/19 08/24/19 History Pantoprazole [Protonix] 40 mg PO BID 08/24/19 08/24/19 History Simvastatin [Zocor] 20 mg PO HS 08/24/19 08/24/19 History Sucralfate [Carafate] 1 gm PO ACHS 08/24/19 08/24/19 History Theophylline 24 Hour [Mookie-24] 300 mg PO DAILY 08/24/19 08/24/19 History Triamterene/Hydrochlorothiazid 1 each PO DAILY 08/24/19 08/24/19 History [Triamterene-Hctz 37.5-25 mg Tb] buPROPion XL [Wellbutrin Xl] 150 mg PO DAILY 08/24/19 08/24/19 History predniSONE 10 mg PO DAILY 08/24/19 08/24/19 History Allergies Allergy/AdvReac Type Severity Reaction Status Date / Time No Known Allergies Allergy Verified 08/24/19 08:47 Physical Exam Vitals: Vital Signs Temp Pulse Resp BP Pulse Ox 08/24/19 07:33 106 H 28 H 113/66 94 L 08/24/19 06:35 100 17 103/68 96 08/24/19 06:12 105 H 24 127/87 94 L 08/24/19 05:29 125 H 23 144/74 93 L 08/24/19 05:18 134 H 08/24/19 05:05 126 H 08/24/19 04:59 98 F 126 H 24 140/104 100 Intake and Output 08/23/19 08/24/19 08/24/19 22:59 06:59 14:59 Other: Weight 50.349 kg Results CBC & Chem 7: 08/24/19 05:08 08/24/19 05:38 Labs: Abnormal Lab Results - Last 24 Hours (Table) 08/24/19 08/24/19 08/24/19 Range/Units 05:08 05:11 05:38 WBC 10.9 H (3.8-10.6) k/uL Hgb 17.3 H (11.4-16.0) gm/dL Hct 52.1 H (34.0-46.0) % Neutrophils # 8.5 H (1.3-7.7) k/uL VBG pCO2 63 H (37-51) mmHg VBG HCO3 34 H (24-28) mmol/L Chloride 96 L (98-107) mmol/L Carbon Dioxide 33 H (22-30) mmol/L BUN 30 H (7-17) mg/dL Glucose 156 H (74-99) mg/dL AST 114 H (14-36) U/L ALT 106 H (4-34) U/L Troponin I (0.000-0.034) ng/mL 08/24/19 Range/Units 05:38 WBC (3.8-10.6) k/uL Hgb (11.4-16.0) gm/dL Hct (34.0-46.0) % Neutrophils # (1.3-7.7) k/uL VBG pCO2 (37-51) mmHg VBG HCO3 (24-28) mmol/L Chloride (98-107) mmol/L Carbon Dioxide (22-30) mmol/L BUN (7-17) mg/dL Glucose (74-99) mg/dL AST (14-36) U/L ALT (4-34) U/L Troponin I 0.103 H* (0.000-0.034) ng/mL
[2019-08-24 12:05] LABS: Glucose,Whole Blood 155 mg/dL (75-99)
[2019-08-24] MEDS: INSULIN ASPART (NovoLOG) 100 UNIT/ML VIAL SQ SCH ×3 (13:05→19:56)
[2019-08-24] MEDS: NICOTINE 14MG/24HR PATCH TRANSDERM SCH (13:08)
--- NOTE | 2019-08-24 13:18 | P.CNPUL ---
History of Present Illness Consult date: 08/24/19 Reason for consult: COPD, pneumonia History of present illness: This 79-year-old female patient with known history of advanced COPD with an FEV1 of 40% of predicted based on her previous pulmonary function test that was done in March 2019. The patient has a DLCO of 34% of predicted and the patient has been long-term oxygen dependent at 4 L per minute nasal cannula. The patient is a chronic smoker continues to smoke cigarettes on a daily basis somewhat between half to 1 pack of cigarettes a day. She is also known to have coronary artery disease, and hyperlipidemia and chronic anxiety. During her most recent evaluation with Dr. Osorio, the patient was having increased shortness of breath and she was asked to stay on systemic steroids on long-term basis a dose of 10 mg by mouth daily. The patient was also started on theophylline and combination to her Pulmicort Respules and DuoNeb nebulized treatments around the clock. The patient is also receiving Zithromax 250 mg MWF given to her by her sales support manager. The patient came in today to the emergency department because of worsening shortness of breath. Initially she wanted to go home and later on she found herself that she is quite short of breath and she end up staying. She was briefly placed on BiPAP at a pressure of 10/5 and subsequently she was taken off the BiPAP and currently is on 5 L of oxygen by nasal cannula. She had a chest x-ray that showed no acute abnormalities and was consistent with COPD. There was however some cardiomegaly and some mild four-vessel congestion. The patient's lactic acid level was at 1.5 and the serum bicarb was at 33 with a hemoglobin of 17.3 and a white cell count of 10.9. Her EKG showed sinus tachycardia. The troponin was slightly elevated although the patient denies any angina. The patient has no leg pain. There is trace edema lower extremities bilaterally. She is considering hospice care if there is no improvement in her condition. It seems that the referral was already made to at home hospice. For now, she is on bronchodilators. I went ahead and added Lasix 20 mg IV push every 12 hours to optimize her respiratory status thinking that it may be a component of CHF on top of her COPD. The proBNP level was 3300. Troponin was at 0.1. Based on my conversation with the daughter, the patient has significant limitation performance and functional status. Her condition had significantly gotten worse over the past few weeks. Review of Systems Constitutional: Reports fatigue, Reports malaise, Denies chills, Denies fever, she has some degree of anxiety and she is chronically fatigued and tired and somewhat deconditioned this point in time. Eyes: denies blurred vision, denies pain Ears, nose, mouth and throat: Denies headache, Denies nasal congestion, Denies nasal discharge, Denies sore throat, Denies vertigo Cardiovascular: Reports chest pain, Reports decreased exercise tolerance, Reports dyspnea on exertion, Denies edema, Denies leg edema, Denies shortness of breath, Denies syncope Respiratory: Reports cough, Reports cough with sputum, Reports dyspnea, Reports home oxygen, Reports respiratory infections, Reports wheezing, Denies excessive sputum, Denies hemoptysis. Denies having any significant chest pain. She is oxygen dependent. Gastrointestinal: Denies abdominal pain, Denies diarrhea, Denies nausea, Denies vomiting Genitourinary: Denies dysuria, Denies hematuria, Denies urgency, Denies urinary frequency Musculoskeletal: Denies frequent falls, Denies gait dysfunction, Denies muscle weakness, Denies myalgias Integumentary: Denies pruritus, Denies rash, Denies wounds Neurological: Denies change in mentation, Denies change in speech, Denies numbness, Denies weakness Psychiatric: Denies anxiety, Denies depression Endocrine: Denies fatigue, Denies weight change Past Medical History Past Medical History: Coronary Artery Disease (CAD), Heart Failure, COPD, GERD/Reflux, Hyperlipidemia, Hypertension, Myocardial Infarction (DE), Respiratory Disorder Additional Past Medical History / Comment(s): End stage COPD, home oxygen at 2L/NC mostly coronary artery disease, previous history of diastolic heart failure, hypertension, depression, chronic anxiety, acid reflux, smoker Last Myocardial Infarction Date:: 08/02/2003 History of Any Multi-Drug Resistant Organisms: None Reported Past Surgical History: Heart Catheterization With Stent, Tonsillectomy Additional Past Surgical History / Comment(s): Bilateral cataract surgery Past Anesthesia/Blood Transfusion Reactions: No Reported Reaction Date of Last Stent Placement:: 08/02/2003 Smoking Status: Current every day smoker - Past Family History Father Additional Family Medical History / Comment(s): Father at age 34 from heart failure. Mother Additional Family Medical History / Comment(s): Mother at age 68 from lung cancer. Brother(s) Additional Family Medical History / Comment(s): Patient has 3 brothers all , one from a motor vehicle accident at age 28, one had history of CVA and kidney cancer and brain cancer status post surgery. One brother from possible prostate cancer at the age of 82. Sister(s) Additional Family Medical History / Comment(s): Patient has 2 sisters one had breast cancer with metastatic disease and one had bleeding from her lungs. Son(s) History Unknown: Yes Additional Family Medical History / Comment(s): Patient has one son that was involved in a motor cross accident at age 18 with spinal cord injury now 52 years of age with lower extremity paralysis and amputation. Patient has one daughter with autoimmune disease and arthritis. Medications and Allergies Home Medications Medication Instructions Recorded Confirmed Type ALPRAZolam [Xanax] 0.25 mg PO BID PRN 03/05/19 08/24/19 History Aspirin 81 mg PO HS 03/05/19 08/24/19 History Budesonide [Pulmicort] 0.5 mg INHALATION RT-BID 03/05/19 08/24/19 History Ipratropium-Albuterol Nebulize 3 ml INHALATION RT-QID 03/05/19 08/24/19 History [Duoneb 0.5 mg-3 mg/3 ml Soln] amLODIPine [Norvasc] 2.5 mg PO HS 03/05/19 08/24/19 History Azithromycin 250 mg PO MOWEFR 08/24/19 08/24/19 History Baclofen 10 mg PO TID 08/24/19 08/24/19 History Pantoprazole [Protonix] 40 mg PO BID 08/24/19 08/24/19 History Simvastatin [Zocor] 20 mg PO HS 08/24/19 08/24/19 History Sucralfate [Carafate] 1 gm PO ACHS 08/24/19 08/24/19 History Theophylline 24 Hour [Mookie-24] 300 mg PO DAILY 08/24/19 08/24/19 History Triamterene/Hydrochlorothiazid 1 each PO DAILY 08/24/19 08/24/19 History [Triamterene-Hctz 37.5-25 mg Tb] buPROPion XL [Wellbutrin Xl] 150 mg PO DAILY 08/24/19 08/24/19 History predniSONE 10 mg PO DAILY 08/24/19 08/24/19 History Allergies Allergy/AdvReac Type Severity Reaction Status Date / Time No Known Allergies Allergy Verified 08/24/19 08:47 Physical Exam Vitals: Vital Signs Temp Pulse Resp BP Pulse Ox 08/24/19 11:49 107 H 08/24/19 11:38 97.8 F 101 H 22 108/68 100 08/24/19 11:36 110 H 08/24/19 11:10 101 H 22 93/59 100 08/24/19 09:29 105 H 24 105/67 97 08/24/19 08:18 114 H 08/24/19 08:04 113 H 28 H 08/24/19 07:33 106 H 28 H 113/66 94 L 08/24/19 06:35 100 17 103/68 96 08/24/19 06:12 105 H 24 127/87 94 L 08/24/19 05:29 125 H 23 144/74 93 L 08/24/19 05:18 134 H 08/24/19 05:05 126 H 08/24/19 04:59 98 F 126 H 24 140/104 100 Intake and Output 08/23/19 08/24/19 08/24/19 22:59 06:59 14:59 Output Total 700 Balance -700 Output: Urine 700 Other: Weight 50.349 kg 50.349 kg Gen. appearance the patient is a mild degree of respiratory distress even at rest and she is laying down in bed in the emergency department. She is currently on 4 L about 2 by nasal cannula. She was taken off the BiPAP. He is able to speak sentences without any major difficulties. Head exam was generally normal. There was no scleral icterus or corneal arcus. Mucous membranes were moist. Neck was supple and without jugular venous distension, thyromegaly, or carotid bruits. Carotids were easily palpable bilaterally. There was no adenopathy. Lungs sounds are markedly diminished in lung bases along with some few scattered crackles and expiratory wheezes throughout the lung lopez. Heart sounds are tachycardic, normal S1-S2 and there is no significant murmurs appreciated. Abdominal exam revealed normal bowel sounds. The abdomen was soft, non-tender, and without masses, organomegaly, or appreciable enlargement of the abdominal organs Examination of the extremities revealed easily palpable radial, femoral and pedal pulses. There was no cyanosis, clubbing or edema Examination of the skin revealed no evidence of significant rashes, suspicious appearing nevi or other concerning lesions. Neurologically awake and alert and there is no focal neurological deficit Psychiatric and the patient has increased anxiety and probably some degree of depression Results - Laboratory Findings CBC and BMP: 08/24/19 05:08 08/24/19 05:38 PT/INR, D-dimer PT 9.8 sec (9.0-12.0) 08/24/19 05:08 INR 0.9 (<1.2) 08/24/19 05:08 Abnormal lab findings: Abnormal Labs 08/24/19 08/24/19 08/24/19 05:08 05:11 05:38 WBC 10.9 H Hgb 17.3 H Hct 52.1 H Neutrophils # 8.5 H VBG pCO2 63 H VBG HCO3 34 H Chloride 96 L Carbon Dioxide 33 H BUN 30 H Glucose 156 H POC Glucose (mg/dL) AST 114 H ALT 106 H Troponin I 08/24/19 08/24/19 08/24/19 05:38 09:27 12:03 WBC Hgb Hct Neutrophils # VBG pCO2 VBG HCO3 Chloride Carbon Dioxide BUN Glucose POC Glucose (mg/dL) 167 H 155 H AST ALT Troponin I 0.103 H* - Diagnostic Findings Chest x-ray: image reviewed Assessment and Plan Plan: 1 acute hypoxic respiratory failure, mostly secondary to COPD exacerbation and possibly some contribution from CHF as the patient is diastolic heart failure and his chest x-ray showing increased pulmonary asked her congestion and cephalization. 2 acute on top of chronic shortness of breath secondary to above 3 advanced COPD with an FEV1 of 40% of predicted and diffusion capacity of 24% of predicted and the patient has been steroid dependent. 4 chronic diastolic heart failure 5 coronary artery disease with previous DE 6 minimal elevation of troponin, troponin leak without clear evidence of an acute coronary event 7 chronic anxiety/depression 8 hypertension 9 smoker 10 acid reflux Plan Agree on the current treatment, continue bronchodilators and steroids optimize the patient's COPD exacerbation. Add Lasix 20 mg every 12 hours Repeat echocardiogram Consider hospice if no improvement We'll follow. Long-term prognosis poor baseline above-mentioned comorbidities. The COVID 19 nasal swab by PCR still pending.
[2019-08-24] MEDS: SUCRALFATE 1 GM TAB PO SCH ×3 (15:05→19:55)
[2019-08-24 16:31] LABS: Glucose,Whole Blood 145 mg/dL (75-99)
[2019-08-24] MEDS: BUDESONIDE 1 MG/2 ML NEBU INHALATION SCH (18:43)
--- NOTE | 2019-08-24 18:44 | CONS ---
CONSULTATION CHIEF COMPLAINT: Elevated troponin. Ashley is a 79-year-old lady with history of coronary artery disease, hypertension, dyslipidemia and severe COPD who presented to hospital with symptoms of progressively worsening shortness of breath. Cardiology has been consulted because of elevated troponin. She had COPD exacerbation, has elevated elevated lactic acid and was tachycardiac on her initial presentation. She also had elevated BNP, suggesting that her shortness of breath is due to a combination of COPD and CHF exacerbations. She denies any chest pain. She has mild leg edema. There is no history of PND or orthopnea. Her troponin elevation is probably related to the hypoxia and COPD exacerbation. Given the end-stage lung disease that she has, she is really not a candidate for any invasive procedures at this time. PAST MEDICAL HISTORY: Past medical history is significant for end-stage COPD, on home oxygen, chronic diastolic heart failure, hypertension, anxiety, coronary artery disease, status post angioplasty. PAST SURGICAL HISTORY: Past surgical history is significant tonsillectomy and cataract surgery. SOCIAL HISTORY: Significant for smoking. There is no history of EtOH abuse or drug abuse. REVIEW OF SYSTEMS: HEENT is unremarkable. CARDIAC: As described above. RESPIRATORY: As described above. GI: Negative. GENITOURINARY: Negative. MUSCULOSKELETAL: Significant for recurrent falls. SKIN: Negative. NEUROLOGICAL: Negative. PSYCH: Negative. ENDOCRINE: Negative. CONSTITUTIONAL: Significant for fatigue, tiredness. PHYSICAL EXAMINATION: Patient is comfortable at rest. Heart rate is 100 beats per minute. Blood pressure is 101/46, respiratory rate is 18. Oxygen saturation is 88% on 5 L. There jugular venous distention. Chest exam reveals diminished air entry with occasional rhonchi. Heart exam reveals first and second heart sounds, systolic murmur in left lower sternal border. Abdomen is soft. Examination of extremities reveals mild edema bilaterally. EKG shows sinus tachycardia with nonspecific ST-T wave changes. LABS: Labs show that the potassium is 4.5, creatinine is 0.6. Two sets of troponins are elevated at 0.1 and 0.09. CBC shows a hemoglobin of 17.3. ASSESSMENT: 1. Shortness of breath due to a combination of chronic obstructive pulmonary disease and congestive heart failure exacerbations. 2. Acute exacerbation of chronic diastolic heart failure. 3. Coronary artery disease, status post angioplasty. 4. Hypertension. PLAN: I will treat the patient with IV Lasix. Will follow the echo results. Continue aspirin, Norvasc and Lovenox that she is on. Patient's prognosis guarded. MMODL / IJN: [id number] /
[2019-08-24 19:47] LABS: Glucose,Whole Blood 162 mg/dL (75-99)
[2019-08-24] MEDS ORDERED: DILTIAZEM DRIP BOLUS FROM BAG 1 MG SOLN IV STA (20:55)
[2019-08-24] MEDS ORDERED: ASPIRIN 81 MG PO SCH (21:00)
[2019-08-24] MEDS ORDERED: amLODIPine 2.5 MG TAB PO SCH (21:00)
[2019-08-24] MEDS: DILTIAZEM 125 MG in SODIUM CHLORIDE 0.9% 100 ML IV SCH (21:13)
[2019-08-24] MEDS ORDERED: MAG HYDROX/AL HYDROX/SIMETH 30 ML CUP PO PRN (22:41)
[2019-08-25] MEDS: IPRATROPIUM-ALBUTEROL 3 ML NEB INHALATION PRN ×2 (01:12→04:36)
[2019-08-25 04:36] VITALS: BP 109/95; RESP 22; TEMP 97.8
[2019-08-25] MEDS: DILTIAZEM 125 MG in SODIUM CHLORIDE 0.9% 100 ML IV SCH (04:54)
[2019-08-25 05:02] LABS: HGB 14.5 gm/dL (11.4-16.0); MCH 30.7 pg (25.0-35.0); MCHC 31.6 g/dL (31.0-37.0); MCV 97.2 fL (80.0-100.0); Mean Platelet Volume 7.6; Platelet Count 210 k/uL (150-450); RBC 4.73 m/uL (3.80-5.40); RDW 12.2 % (11.5-15.5); WBC 10.9 k/uL (3.8-10.6)
[2019-08-25] MEDS: ALPRAZolam 0.25 MG TAB PO PRN (05:12)
[2019-08-25] MEDS: methylPREDNISolone SOD SUCCI 125 MG/2 ML VIAL IV SCH ×2 (05:12→12:43)
[2019-08-25 06:04] LABS: ALT 74 U/L (4-34); AST 42 U/L (14-36); African American GFR (CKD) >90 (>60 ml/min/1.73 sqM); Albumin 3.7 g/dL (3.5-5.0); Alkaline Phosphatase 85 U/L (38-126); Blood Urea Nitrogen 32 mg/dL (7-17); Calcium 9.6 mg/dL (8.4-10.2); Chloride 83 mmol/L (98-107); Glucose 145 mg/dL (74-99); Non-African American GFR(CKD) 87 (>60 ml/min/1.73 sqM); Potassium 3.8 mmol/L (3.5-5.1); Sodium 130 mmol/L (137-145); Total Bilirubin 0.4 mg/dL (0.2-1.3); Total Protein 6.2 g/dL (6.3-8.2)
[2019-08-25 06:10] LABS: Anion Gap 4 mmol/L
[2019-08-25 06:13] LABS: Carbon Dioxide 43 mmol/L (22-30)
[2019-08-25] MEDS: SUCRALFATE 1 GM TAB PO SCH ×2 (06:47→12:41)
[2019-08-25] MEDS: INSULIN ASPART (NovoLOG) 100 UNIT/ML VIAL SQ SCH ×2 (06:48→11:51)
[2019-08-25] MEDS: BUDESONIDE 1 MG/2 ML NEBU INHALATION SCH (07:23)
[2019-08-25] MEDS: IPRATROPIUM-ALBUTEROL 3 ML NEB INHALATION SCH ×3 (07:23→15:36)
[2019-08-25] MEDS ORDERED: PANTOPRAZOLE 40 MG TABLET PO SCH (07:30)
[2019-08-25] MEDS ORDERED: DIAZEPAM 5 MG TAB PO PRN (08:44)
--- NOTE | 2019-08-25 08:51 | CDI ---
Documentation Clarification Form Date: 08/25/2019 08:42:21 AM From: Zena Peng RN, CCDS Admit Date: 08/24/2019 08:55:00 AM Patient Name: Ashley Storey Visit Number: [id number] ATTENTION: The Clinical Documentation Specialists (CDI) and [facility] Coding Staff appreciate your assistance in clarifying documentation. Please respond to the clarification below the line at the bottom and electronically sign. The CDI & [facility] Coding staff will review the response and follow-up if needed. Please note: Queries are made part of the Legal Health Record. If you have any questions, please contact the author of this message via ITS. Dr. Zion Hernandez A low BMI has been noted in a patient with multiple chronic conditions. Please provide clinical significance. History/Risk Factors: Smoker, HTN, CADF, End stage COPD, Acute on chronic diastolic CHF, chronic hypoxic respiratory failure, anxiety Clinical Indicators: 08/23 H&P: "This is a thin 79-year-old female." 08/23-08/24 Labs: NA+ 138/130, BUN 30/32, total protein 6.7/6.2, albumin 3.9/3.7 Current BMI: 18.8 Fluid accumulation: mild lower extremity edema bilaterally Treatment: Dietary Consult: not ordered Supplements: not ordered Lab monitoring: AM daily In your professional opinion, can you please clarify if these findings signify one of the following conditions? Mild Protein-Calorie Malnutrition Moderate Protein-Calorie Malnutrition XX Severe Protein-Calorie Malnutrition Other condition, please specify Unable to determine (Last Revision: August 2018) MTDD
[2019-08-25] MEDS ORDERED: ENOXAPARIN 40 MG/0.4 ML SYRINGE SQ SCH (09:00)
[2019-08-25] MEDS ORDERED: FUROSEMIDE 40 MG TAB PO SCH (09:00)
[2019-08-25] MEDS: BACLOFEN 10 MG TAB PO SCH ×2 (09:57→16:57)
[2019-08-25] MEDS: DILTIAZEM ORAL 30 MG TAB PO SCH ×2 (09:57→16:57)
[2019-08-25] MEDS: NICOTINE 14MG/24HR PATCH TRANSDERM SCH (09:57)
[2019-08-25] MEDS: ATROPINE OPHTH SOLN 1% 5ML BTL SUBLINGUAL SCH ×2 (09:58→12:43)
[2019-08-25] MEDS: TRIAMTERENE-HCTZ 37.5-25MG 1 EACH TAB PO SCH (10:05)
[2019-08-25] MEDS: buPROPion XL 150 MG TAB.ER.24H PO SCH (10:05)
[2019-08-25 11:35] LABS: Glucose,Whole Blood 141 mg/dL (75-99)
--- NOTE | 2019-08-25 11:39 | ECHOF ---
Referral Reason:NSI MEASUREMENTS -------- HEIGHT: 165.1 cm WEIGHT: 50.3 kg BP: RVIDd: 2.5 cm (< 3.3) IVSd: 0.6 cm (0.6 - 1.1) LVIDd: 6.2 cm (3.9 - 5.3) LVPWd: 1.0 cm (0.6 - 1.1) IVSs: 1.0 cm LVIDs: 5.9 cm LVPWs: 1.0 cm LAESV Index (A-L): 26.85 ml/m Ao Diam: 2.4 cm (2.0 - 3.7) AV Cusp: 1.4 cm (1.5 - 2.6) LA Diam: 3.6 cm (2.7 - 3.8) MV EXCURSION: 8.677 mm (> 18.000) MV EF SLOPE: 38 mm/s (70 - 150) EPSS: 3.3 cm MV E Jae: 0.72 m/s MV DecT: 226 ms MV A Jae: 1.28 m/s MV E/A Ratio: 0.56 AV maxP.80 mmHg AV meanP.82 mmHg RAP: 5.00 mmHg RVSP: 21.23 mmHg FINDINGS -------- Resting tachycardia (HR>100bpm). This was a technically good study. The left ventricle is severely dilated. Left ventricular wall thickness is normal. There is sever e global hypokinesis of LV . Overall left ventricular systolic function is severely impaired with, an EF between 20 - 25 %. Increased LAP. Grade 3 Diastolic Dysfunction. The right ventricle is normal in size. The left atrial size is normal. Normal LA size by volume 22+/-6 ml/m2. The right atrial size is normal. Interatrial and interventricular septum intact. Aortic valve is trileaflet and is mildly thickened. There is mild aortic stenosis present. Peak/m oswaldo gradient across the Aortic Valve is 16.80mmHg / 9.82mmHg. The mitral valve is normal. The mitral valve leaflets are mildly thickened. Moderate mitral regur gitation is present. The tricuspid valve appears structurally normal. Mild tricuspid regurgitation present. Right vent ricular systolic pressure is normal at < 35 mmHg. There is no pulmonic regurgitation present. The aortic root size is normal. IVC Not well visulized. There is no pericardial effusion. CONCLUSIONS -------- 1. Resting tachycardia (HR>100bpm). 2. This was a technically good study. 3. The left ventricle is severely dilated. 4. Left ventricular wall thickness is normal. 5. There is severe global hypokinesis of LV . 6. Overall left ventricular systolic function is severely impaired with, an EF between 20 - 25 %. 7. Increased LAP. Grade 3 Diastolic Dysfunction. 8. The right ventricle is normal in size. 9. The left atrial size is normal. 10. Normal LA size by volume 22+/-6 ml/m2. 11. The right atrial size is normal. 12. Interatrial and interventricular septum intact. 13. Aortic valve is trileaflet and is mildly thickened. 14. There is mild aortic stenosis present. 15. Peak/mean gradient across the Aortic Valve is 16.80mmHg / 9.82mmHg. 16. The mitral valve is normal. 17. The mitral valve leaflets are mildly thickened. 18. Moderate mitral regurgitation is present. 19. The tricuspid valve appears structurally normal. 20. Mild tricuspid regurgitation present. 21. Right ventricular systolic pressure is normal at < 35 mmHg. 22. There is no pulmonic regurgitation present. 23. The aortic root size is normal. 24. IVC Not well visulized. 25. There is no pericardial effusion. EDUCATIONAL PROGRAM ASSISTANT: Martha Holm RDCS
[2019-08-25 12:41] VITALS: BMI 18.8
--- NOTE | 2019-08-25 13:07 | XR ---
EXAMINATION TYPE: XR chest 1V portable DATE OF EXAM: 08/25/2019 HISTORY: Shortness of breath. COMPARISON: 08/24 19 TECHNIQUE: Single view of the chest is submitted. FINDINGS: Demonstrated are scattered senescent parenchymal change. There is no evidence for focal infiltrate. Cardiomegaly is noted. Tiny effusions suggested. Interstitial edema identified. Hilar and mediastinal structures are within normal limits. Degenerative changes are seen of the dorsal spine. IMPRESSION: 1. Cardiomegaly is noted. Tiny effusions suggested. Interstitial edema identified.
--- NOTE | 2019-08-25 13:46 | P.PN ---
Subjective Progress Note Date: 08/25/19 On 08/25/2019, I'm seeing the patient for a follow-up. The patient is feeling slightly better compared to yesterday. She is less short of breath less focused bronchospastic and wheezy. She remains quite anxious. Overnight, she received diuretics she has been in a negative fluid balance of 1.7 L over the past 24 hours. The chest x-ray from today showing cardiomegaly and tiny effusions and there is still a component of interstitial edema. The patient's had a echocardiogram that showed severely impaired LV function with an ejection fraction of 20-25%. There is global hypokinesis of the left ventricular wall. Also, the patient overnight went into atrial fibrillation with rapid ventricular response. She had been placed on Cardizem at 10 mg an hour. She is converted back into normal sinus rhythm. Discussed case with cardiology and the patient will placed on Cardizem 30 mg by mouth 3 times a day. Pulmicort Respules and I will add Perforomist. I'm going to discontinue the theophylline based on her underlying paroxysmal atrial fibrillation. She is given a nicotine patch regarding her chronic nicotine dependence. Cardiology is on the case regarding her proximal atrial fibrillation. Cardio is also on the case regarding her cardiomyopathy. Objective - Vital Signs Vital signs: Vital Signs Temp 97.8 F 08/25/19 04:00 Pulse 101 H 08/25/19 11:30 Resp 22 08/25/19 08:00 BP 109/95 08/25/19 04:00 Pulse Ox 91 L 08/25/19 08:00 Intake & Output 08/24/19 08/25/19 08/25/19 18:59 06:59 18:59 Intake Total 196.833 Output Total 1110 875 590 Balance -1110 -678.167 -590 Weight 50.349 kg 51.2 kg 51.2 kg Intake: Intake, IV Titration 76.833 Amount Diltiazem 125 mg In 76.833 Sodium Chloride 0.9% 100 ml @ 10 MG/HR 10 mls/hr IV .[id number] [facility] Rx#: [id number] Oral 120 Output: Urine 1110 875 590 Other: Voiding Method Indwelling Catheter Indwelling Catheter Indwelling Catheter - Exam Gen. appearance the patient is a mild degree of respiratory distress and she continues to be significantly anxious.. She is currently on oxygen at 4-6 L per minute nasal cannula.Head exam was generally normal. There was no scleral icterus or corneal arcus. Mucous membranes were moist. Neck was supple and without jugular venous distension, thyromegaly, or carotid bruits. Carotids were easily palpable bilaterally. There was no adenopathy. Lungs sounds are markedly diminished in lung bases along with some few scattered crackles and expiratory wheezes throughout the lung lopez. Heart sounds are tachycardic, normal S1-S2 and there is no significant murmurs appreciated. Abdominal exam revealed normal bowel sounds. The abdomen was soft, non-tender, and without masses, organomegaly, or appreciable enlargement of the abdominal organs Examination of the extremities revealed easily palpable radial, femoral and pedal pulses. There was no cyanosis, clubbing or edema Examination of the skin revealed no evidence of significant rashes, suspicious appearing nevi or other concerning lesions. Neurologically awake and alert and there is no focal neurological deficit Psychiatric and the patient has increased anxiety and probably some degree of depression - Labs CBC & Chem 7: 08/25/19 03:45 08/25/19 03:45 Labs: Abnormal Lab Results - Last 24 Hours (Table) 08/24/19 08/24/19 08/24/19 Range/Units 16:28 16:53 19:45 WBC (3.8-10.6) k/uL Sodium (137-145) mmol/L Chloride (98-107) mmol/L Carbon Dioxide (22-30) mmol/L BUN (7-17) mg/dL Glucose (74-99) mg/dL POC Glucose (mg/dL) 145 H 162 H (75-99) mg/dL AST (14-36) U/L ALT (4-34) U/L Troponin I 0.102 H* (0.000-0.034) ng/mL Total Protein (6.3-8.2) g/dL 08/25/19 08/25/19 08/25/19 Range/Units 03:45 03:45 11:34 WBC 10.9 H (3.8-10.6) k/uL Sodium 130 L (137-145) mmol/L Chloride 83 L (98-107) mmol/L Carbon Dioxide 43 H* (22-30) mmol/L BUN 32 H (7-17) mg/dL Glucose 145 H (74-99) mg/dL POC Glucose (mg/dL) 141 H (75-99) mg/dL AST 42 H (14-36) U/L ALT 74 H (4-34) U/L Troponin I (0.000-0.034) ng/mL Total Protein 6.2 L (6.3-8.2) g/dL Assessment and Plan Plan: 1 acute hypoxic respiratory failure, mostly secondary to COPD exacerbation and possibly some contribution from CHF as the patient is diastolic heart failure and his chest x-ray showing increased pulmonary asked her congestion and cephalization. 2 acute on top of chronic shortness of breath secondary to above 3 advanced COPD with an FEV1 of 40% of predicted and diffusion capacity of 24% of predicted and the patient has been steroid dependent. 4 acute systolic heart failure which is a new onset CVA global hypokinesis and the left ventricular is quite dilated. 5 coronary artery disease with previous IN 6 minimal elevation of troponin, troponin leak with possible non-STEMI 7 paroxysmal atrial fibrillation the patient has been converted into normal sinus rhythm 8 hypertension 9 smoker 10 acid reflux 11 anxiety/depression 12 chronic metabolic alkalosis probably rates to hypercapnic respiratory failure. The patient's serum bicarbs up to 43 due to diuresis. Plan Agree on the current treatment, continue bronchodilators and steroids optimize the patient's COPD exacerbation. Discontinue the theophylline based on the proximal atrial fibrillation. Continue Perforomist and Pulmicort twice a day Continue the albuterol and ipratropium nebulized solutions 4 times a day The patient is back into normal sinus rhythm and will going to discontinue the Cardizem drip Repeat switch this patient to oral Lasix echocardiogram results were noted and awaiting cardiology consultation Consider hospice if no improvement upon patient's wishes We'll follow. Long-term prognosis poor baseline above-mentioned comorbidities. The COVID 19 nasal swab by PCR was negative
--- NOTE | 2019-08-25 13:47 | PN ---
PROGRESS NOTE Ashley is a 79-year-old lady is admitted to hospital with respiratory failure. I saw her yesterday when she 1st arrived. We have been consulted because of her shortness of breath. I believe her clinical presentation is due to a combination of COPD and CHF exacerbations. This morning, she is still short of breath, may be somewhat better than yesterday. Heart rate is 87 beats per minute. Blood pressure is 109/95, respiratory rate 24. Chest exam reveals diffuse rhonchi bilaterally. Heart exam reveals first and second heart sounds. No gallop. Exam of extremities did not reveal any edema. Labs show a hemoglobin of 14.5, platelet count is 210. Potassium is 3.8, creatinine is 0.6. Troponins are mildly elevated at 0.1, 0.1 and 0.1 probably secondary to profound hypoxia. ASSESSMENT: Shortness of breath secondary to a combination of congestive heart failure and chronic obstructive pulmonary disease exacerbations. PLAN: Patient will continue the aspirin, Lasix will be switched to p.o. Continue the Norvasc that she is on along with nebulizers. The patient was on Cardizem drip and we will put her on p.o. Cardizem and stop the amlodipine today. MMODL / IJN: [id number] /
--- NOTE | 2019-08-25 14:15 | P.PN ---
Subjective Progress Note Date: 08/25/19 This is a 79-year-old female patient of Dr. Hernandez and Dr. Mercado with past medical history of hypertension, coronary artery disease with previous [place] and stent, end-stage COPD, prednisone dependent, hyperlipidemia, chronic hypoxic respiratory failure, generalized anxiety disorder, active tobacco use and dependence. The patient has had ongoing worsening of her difficulty breathing. She is stating that she is just tired. She knows that she is going to soon. She has been active tobacco use. Currently at one to 2 packs per day but has cut back due to difficulty breathing. She has been using her medications at home without improvement. Patient was afebrile, heart rate 126, blood pressure 140/104, pulse ox 100% on oxygen. EKG was a sinus tachycardia at 133. WBC 10.9, hemoglobin 17.3. CO2 33, creatinine 0.6, BUN 30, blood sugar 156. Lactic acid 1.5. Total bilirubin 0.7, AST 114, ALT 106, phosphatase 108. Troponin 0.103. Chest x-ray reveals cardiomegaly. There is new pulmonary interstitial edema compared to old exam that could be acute heart failure. Underlying COPD. Patient verbalizes that she is ready to give up. Daughter is at the bedside. At this time, we will continue aggressive treatment and patient is agreeable to wait until . Patient is appropriate for hospice care. Option of [facility] home offered. Patient prefers to be at home with hospice. Consults admitted for pulmonary medicine for COPD exacerbation and cardiology for elevated troponins.. 08/24: Patient remains in the intensive care unit. Her breathing status is improved today but patient continues to be quite anxious. Xanax changed to Valium. She has gone into A. fib with episodes of RVR and started on Cardizem by Dr. Negro. She has been afebrile, heart rate currently 105, and pressure 96/57, pulse ox 91% on 7 L nasal cannula. Patient states she is having con tinuing wheezing and she has trouble getting her breath between nebulizer treatments. A Gomes catheter has been placed. We are planning for informational meeting with hospice today and possible discharge by tomorrow. Review of Systems Constitutional: Reports fatigue, Reports malaise, Denies chills, Denies fever Eyes: denies blurred vision, denies pain Ears, nose, mouth and throat: Denies headache, Denies nasal congestion, Denies nasal discharge, Denies sore throat, Denies vertigo Cardiovascular: Reports chest pain, Reports decreased exercise tolerance, Reports dyspnea on exertion, Denies edema, Denies leg edema, Denies shortness of breath, Denies syncope Respiratory: Reports cough, Reports cough with sputum, Reports dyspnea, Reports home oxygen, Reports respiratory infections, Reports wheezing, Denies excessive sputum, Denies hemoptysis Gastrointestinal: Denies abdominal pain, Denies diarrhea, Denies nausea, Denies vomiting Genitourinary: Denies dysuria, Denies hematuria, Denies urgency, Denies urinary frequency Musculoskeletal: Denies frequent falls, Denies gait dysfunction, Denies muscle weakness, Denies myalgias Integumentary: Denies pruritus, Denies rash, Denies wounds Neurological: Denies change in mentation, Denies change in speech, Denies numbness, Denies weakness Psychiatric: Reports anxiety, Denies depression Endocrine: Denies fatigue, Denies weight change Physical Examination Gen: This is a thin 79-year-old female. Patient restless, anxious and dyspneic. Patient was seen on the edge of the ICU bed. HEENT: Head is atraumatic, normocephalic. Pupils equal, round. Sclerae is anicteric. Oral mucous membranes dry. No thrush noted. NECK: Supple. No JVD. No lymphadenopathy. No thyromegaly. LUNGS: Lung sounds are diminished with expiratory wheeze. Moderate intercostal retractions. HEART: Distant heart sounds. Regular rate and rhythm. No murmur. ABDOMEN: Soft. Bowel sounds are present. No masses. Mild generalized tenderness. Gomes catheter draining clear jonathan urine. EXTREMITIES: No pedal edema. No calf tenderness. Dorsalis pedis +2 bilaterally. NEUROLOGICAL: Patient is awake, alert and oriented x3. Cranial nerves 2 through 12 are grossly intact. Assessment and Plan 1. Acute hypoxic respiratory failure secondary to combination of COPD exacerbation and acute diastolic heart failure. 2. COPD exacerbation. Continue DuoNeb treatments 4 times daily and every 4 elif rs as needed, Perforomist twice daily, Pulmicort 1 mg twice daily, Solu-Medrol 60 mg IV every 6 hours, theophylline 300 mg daily, consult with Dr. Negro. 3. Acute diastolic heart failure. Continue Lasix 40 mg daily, monitor I&O and daily weights. 4. Elevated troponins, possible non-ST elevated myocardial infarction, possibly related to sinus tachycardia. Consult with cardiology, repeat troponins. 5. A. fib with RVR, paroxysmal. Patient started on Cardizem by Dr. Negro. 6. Hypertension. Continue Norvasc 2.5 mg daily, Maxide daily. 7. History of coronary artery disease status post [place] and stent, continue aspirin 81 mg. 8. Recurrent depression and Generalized anxiety disorder. Continue Wellbutrin 150 mg daily, Xanax changed to Valium. 9. Gastroesophageal reflux disease and GI prophylaxis. Protonix and Carafate. 10. DVT prophylaxis. Lovenox. 11. Tobacco use and dependence. Nicotine patch. 11. COVID-19 testing in progress. Patient will be admitted to the hospital for a minimum of 2 night stay. Discharge plan: Most likely home with hospice on depending on progress. Hospice informational meeting today. Impression and plan of care have been directed as dictated by the signing physician. Mahogany Smith nurse practitioner acting as scribe for signing physician. Objective - Vital Signs Vital signs: Vital Signs Temp 97.8 F 08/25/19 04:00 Pulse 103 H 08/25/19 07:39 Resp 22 08/25/19 04:00 BP 109/95 08/25/19 04:00 Pulse Ox 91 L 08/25/19 04:00 Intake & Output 08/24/19 08/25/19 08/25/19 18:59 06:59 18:59 Intake Total 196.833 Output Total 1110 875 Balance -1110 -048.167 Weight 50.349 kg 51.2 kg Intake: Intake, IV Titration 76.833 Amount Diltiazem 125 mg In 76.833 Sodium Chloride 0.9% 100 ml @ 10 MG/HR 10 mls/hr IV .[id number] [facility] Rx#: [id number] Oral 120 Output: Urine 1110 875 Other: Voiding Method Indwelling Catheter Indwelling Catheter - Labs CBC & Chem 7: 08/25/19 03:45 08/25/19 03:45 Labs: Abnormal Lab Results - Last 24 Hours (Table) 08/24/19 08/24/19 08/24/19 Range/Units 09:27 12:03 12:16 WBC (3.8-10.6) k/uL Sodium (137-145) mmol/L Chloride (98-107) mmol/L Carbon Dioxide (22-30) mmol/L BUN (7-17) mg/dL Glucose (74-99) mg/dL POC Glucose (mg/dL) 167 H 155 H (75-99) mg/dL AST (14-36) U/L ALT (4-34) U/L Troponin I 0.098 H* (0.000-0.034) ng/mL Total Protein (6.3-8.2) g/dL 08/24/19 08/24/19 08/24/19 Range/Units 16:28 16:53 19:45 WBC (3.8-10.6) k/uL Sodium (137-145) mmol/L Chloride (98-107) mmol/L Carbon Dioxide (22-30) mmol/L BUN (7-17) mg/dL Glucose (74-99) mg/dL POC Glucose (mg/dL) 145 H 162 H (75-99) mg/dL AST (14-36) U/L ALT (4-34) U/L Troponin I 0.102 H* (0.000-0.034) ng/mL Total Protein (6.3-8.2) g/dL 08/25/19 08/25/19 Range/Units 03:45 03:45 WBC 10.9 H (3.8-10.6) k/uL Sodium 130 L (137-145) mmol/L Chloride 83 L (98-107) mmol/L Carbon Dioxide 43 H* (22-30) mmol/L BUN 32 H (7-17) mg/dL Glucose 145 H (74-99) mg/dL POC Glucose (mg/dL) (75-99) mg/dL AST 42 H (14-36) U/L ALT 74 H (4-34) U/L Troponin I (0.000-0.034) ng/mL Total Protein 6.2 L (6.3-8.2) g/dL
[2019-08-25 15:50] VITALS: PULSE 100
[2019-08-25 16:35] LABS: Glucose,Whole Blood 155 mg/dL (75-99)
[2019-08-25] MEDS ORDERED: FORMOTEROL FUMARATE 20 MCG/2 ML NEBU INHALATION SCH (20:00)
== END 2019-08-25 17:26 | disposition hospice, home (50) | DRG 190 ==
LOC: EC 04:59 → 3SCARD 08:55 → 2SICU 11:28
PROVIDERS: ADMIT Internal Medicine Geriatric Medicine; ATTEND Internal Medicine Geriatric Medicine
PROC: 5A09357 Assistance with Respiratory Ventilation, Less than 24 Consecutive Hours, Continuous Positive Airway Pressure (ICD-10-PCS; principal; 2019-08-24)
DX: J44.1 Chronic obstructive pulmonary disease with (acute) exacerbation (principal); I50.33 Acute on chronic diastolic (congestive) heart failure; J96.21 Acute and chronic respiratory failure with hypoxia; J96.22 Acute and chronic respiratory failure with hypercapnia; E43 Unspecified severe protein-calorie malnutrition; I42.9 Cardiomyopathy, unspecified; E87.3 Alkalosis; F33.9 Major depressive disorder, recurrent, unspecified; Z68.1 Body mass index [BMI] 19.9 or less, adult; Z20.828 Contact with and (suspected) exposure to other viral communicable diseases; Z51.5 Encounter for palliative care; Z66 Do not resuscitate; I11.0 Hypertensive heart disease with heart failure; Z99.81 Dependence on supplemental oxygen; I48.0 Paroxysmal atrial fibrillation; I25.10 Atherosclerotic heart disease of native coronary artery without angina pectoris; F41.1 Generalized anxiety disorder; E78.5 Hyperlipidemia, unspecified; R00.0 Tachycardia, unspecified; K21.9 Gastro-esophageal reflux disease without esophagitis; F17.210 Nicotine dependence, cigarettes, uncomplicated; I25.2 Old myocardial infarction; Z71.3 Dietary counseling and surveillance; Z79.899 Other long term (current) drug therapy; Z79.82 Long term (current) use of aspirin; Z79.52 Long term (current) use of systemic steroids; Z95.5 Presence of coronary angioplasty implant and graft; Z98.49 Cataract extraction status, unspecified eye; Z98.890 Other specified postprocedural states; Z91.81 History of falling; Z82.49 Family history of ischemic heart disease and other diseases of the circulatory system; Z80.1 Family history of malignant neoplasm of trachea, bronchus and lung; Z80.8 Family history of malignant neoplasm of other organs or systems; Z80.51 Family history of malignant neoplasm of kidney; Z80.42 Family history of malignant neoplasm of prostate; Z82.3 Family history of stroke; Z80.3 Family history of malignant neoplasm of breast; Z82.61 Family history of arthritis
CPT/HCPCS: 36415; 71045; 80053; 82803; 83605; 83880; 84484; 85025; 85027; 85610; 85730; 93005; 93306; 94640; 94660; 96374; 96375; 96376; 99285